=== PATIENT | female | born 1970 | race Caucasian/White ===

== ENCOUNTER 2018-04-15 09:02 | Day surgery (SDC) | payer MEDICAID ==
[2018-04-08 16:07] LABS: BASOPHILS # (AUTO) 0.1 X10'3 (0-0.2); BASOPHILS % (AUTO) 0.8 % (0-1); EOSINOPHILS # (AUTO) 0.4 X10'3 (0-0.9); EOSINOPHILS % (AUTO) 4.5 % (0-6); LYMPHOCYTES # (AUTO) 2.5 X10'3 (1.1-4.8); LYMPHOCYTES % (AUTO) 32.5 % (21-51); MEAN CORPUSCULAR HEMOGLOBIN 28.7 PG (27.0-31.0); MEAN CORPUSCULAR VOLUME 84.4 FL (78-98); MEAN PLATELET VOLUME 7.5 FL (7.4-10.4); MONOCYTES # (AUTO) 0.5 X10'3 (0-0.9); MONOCYTES % (AUTO) 5.8 % (2-12); NEUTROPHILS # (AUTO) 4.4 X10'3 (1.8-7.7); NEUTROPHILS % (AUTO) 56.4 % (42-75); PRE OP HEMATOCRIT 39.4 % (35.0-45.0); PRE OP HEMOGLOBIN 13.4 g/dL (12.0-16.0); PRE OP PLATELET COUNT 341 X10'3 (140-440); RED BLOOD COUNT 4.67 X10'6 (4.20-5.60); RED CELL DISTRIBUTION WIDTH 15.8 % (11.5-14.5)
[2018-04-08 16:08] LABS: CLARITY,URINE CLOUDY (Clear); COLOR,URINE YELLOW (Yellow); GLUCOSE, URINE NEGATIVE (Neg); KETONES,URINE NEGATIVE (Neg); LEUKOCYTE ESTERASE ,URINE TRACE (Neg); NITRITES, URINE NEGATIVE (Neg); OCCULT BLOOD,URINE NEGATIVE (Neg); PROTEIN,URINE NEGATIVE (Neg); UROBILINOGEN,URINE 0.2 E.U/dL (0.2-1.0)
[2018-04-08 16:19] LABS: SQUAMOUS EPITHELIAL CELL,UR MANY /LPF (FEW); UA COLLECTION TYPE CLN CATCH MIDSTREAM
[2018-04-08 16:20] LABS: BACTERIA,URINE 2+ /HPF (Neg); RBC,URINE 0-2 /HPF (0-2); WBC,URINE 0-4 /HPF (0-4)
[2018-04-08 16:25] LABS: ALBUMIN 3.2 G/DL (3.4-5.0); ALBUMIN/GLOBULIN RATIO 0.9 (1.1-1.5); ALKALINE PHOSPHATASE 123 IU/L (46-116); BLOOD UREA NITROGEN 9 MG/DL (7-18); BUN/CREATININE RATIO 10.6 (6.6-38.0); CHLORIDE 105 MMOL/L (99-107); CREATININE 0.85 MG/DL (0.40-0.90); PRE OP ALT 75 U/L (30-65); PRE OP ANION GAP 6 (8-16); PRE OP AST 63 U/L (10-37); PRE OP BILIRUB, TOTAL 0.3 MG/DL (0.0-1.0); PRE OP GLUCOSE 114 MG/DL (70-104); PRE OP POTASSIUM 3.8 MMOL/L (3.4-5.1); PRE OP SODIUM 140 MMOL/L (135-145); TOTAL CARBON DIOXIDE 29.4 MMOL/L (24-32); TOTAL PROTEIN 6.9 G/DL (6.4-8.2); eGFR 71 ML/MIN
[2018-04-08 16:44] LABS: INR 0.9 INR; PARTIAL THROMBOPLASTIN TIME 27 SECONDS (22-32); PROTHROMBIN TIME 9.8 SECONDS (9.0-12.0)
[~2018-04-15] VITALS: Ht 172.7 cm; Wt 129.4 kg
[~2018-04-15 09:02] MED LIST: ALBU8HFA PO; BENZ-16 PO; BUPR-94 PO; CHOL10008 PO; CYCL-1 PO; EFF25T PO; PANT-47 PO; POTA99TA21 PO; PREG150C PO; TIOT4MIS3 INH; TRAZ150T78 PO; VENL75CA61 PO; albuterol 2.5 MG/3 ML nebule NEB ONE; clindamycin-Cleocin 900mg/D5W 50 ML IV ONE; famotidine 20mg tablet PO ONE; ringers solution, lacted 1,000 ML IV SCH
[2018-04-15 09:15] VITALS: BP 135/84
[2018-04-15] MEDS ORDERED: bupivacaine (with preservative) 5 mg/ml inj. 50ml ONE ×2 (12:28→12:52)
[2018-04-15] MEDS ORDERED: midazolam 2 mg/2 ml injection ONE (12:58)
[2018-04-15] MEDS ORDERED: fentaNYL /PF 50mcg/ml 5ml ampule ONE (13:00)
[2018-04-15] MEDS ORDERED: sevoflurane 250ml liquid IH ONE (13:00)
[2018-04-15] MEDS ORDERED: gentamicin 40 MG/1 ML inj ONE (13:25)
[2018-04-15] MEDS ORDERED: clindamycin phosphate 150mg/ml inj. ONE (13:25)
[2018-04-15] MEDS ORDERED: ringers solution, lacted 1,000 ML IV SCH (14:46)
[2018-04-15 14:48] VITALS: BP 163/104
[2018-04-15] MEDS ORDERED: ondansetron/PF 4mg/2ml inj IV PRN (14:50)
[2018-04-15] MEDS ORDERED: fentaNYL/PF 50MCG/1 ML 2ML syringe IV PRN ×2 (14:50)
[2018-04-15] MEDS ORDERED: LIDOcaine 2% (20mg/ml) 5ml vial ONE (14:54)
[2018-04-15] MEDS ORDERED: ondansetron/PF 4mg/2ml inj ONE (14:54)
[2018-04-15] MEDS ORDERED: rocuronium 10mg/ml inj IV ONE (14:54)
[2018-04-15] MEDS ORDERED: neostigmine methylsulfate 1 MG/ML 10ml vial ONE (14:54)
[2018-04-15] MEDS ORDERED: glycopyrrolate 0.2mg/ml inj ONE (14:54)
[2018-04-15] MEDS ORDERED: propofol inj 20 ML IV ONE (14:54)
[2018-04-15 14:58] VITALS: BP 159/97
[2018-04-15 15:08] VITALS: BP 154/84
[2018-04-15 15:18] VITALS: BP 156/82
[2018-04-15 15:28] VITALS: BP 159/87
== END 2018-04-15 15:48 | disposition home or self-care (01) ==
LOC: PAS 09:02
PROVIDERS: ATTEND Surgery
DX: K43.2 Incisional hernia without obstruction or gangrene (principal); M19.90 Unspecified osteoarthritis, unspecified site; K21.9 Gastro-esophageal reflux disease without esophagitis; M79.7 Fibromyalgia; F32.9 Major depressive disorder, single episode, unspecified; G47.00 Insomnia, unspecified; E66.9 Obesity, unspecified; G89.29 Other chronic pain; I10 Essential (primary) hypertension; J44.9 Chronic obstructive pulmonary disease, unspecified; F17.210 Nicotine dependence, cigarettes, uncomplicated; Z90.49 Acquired absence of other specified parts of digestive tract; Z88.0 Allergy status to penicillin; Z88.3 Allergy status to other anti-infective agents; Z88.5 Allergy status to narcotic agent; Z79.01 Long term (current) use of anticoagulants; Z88.2 Allergy status to sulfonamides; Z98.51 Tubal ligation status; Z86.19 Personal history of other infectious and parasitic diseases; Z91.048 Other nonmedicinal substance allergy status; Z88.6 Allergy status to analgesic agent; Z91.018 Allergy to other foods; Z88.8 Allergy status to other drugs, medicaments and biological substances; Z79.891 Long term (current) use of opiate analgesic; Z79.899 Other long term (current) drug therapy; Z68.41 Body mass index [BMI] 40.0-44.9, adult
CPT/HCPCS: 36415; 49560; 49568; 80053; 81001; 85025; 85610; 85730; A6449; C1781; J2001; J2250; J2405; J2704; J2710; J3010; J3490; J7120; A7000; J1580

== ENCOUNTER 2018-05-01 12:02 | Inpatient (IN) | payer MEDICAID ==
[~2018-05-01] VITALS: Ht 174 cm; Wt 122.0 kg
[~2018-05-01 12:02] MED LIST changes: -EFF25T PO; -albuterol 2.5 MG/3 ML nebule NEB ONE; -clindamycin-Cleocin 900mg/D5W 50 ML IV ONE; -famotidine 20mg tablet PO ONE; -ringers solution, lacted 1,000 ML IV SCH
[2018-05-01] MEDS ORDERED: ketorolac tromethamine 15mg/ml inj. IV ONE (12:55)
[2018-05-01] MEDS ORDERED: vancomycin/NS 1 GM ADD-VANTAGE 250 ML IV ONE (12:55)
[2018-05-01] MEDS ORDERED: clindamycin-Cleocin 900mg/D5W 50 ML IV ONE (12:55)
[2018-05-01 13:28] LABS: BASOPHILS # (AUTO) 0.1 X10'3 (0-0.2); BASOPHILS % (AUTO) 0.5 % (0-1); EOSINOPHILS # (AUTO) 0.3 X10'3 (0-0.9); EOSINOPHILS % (AUTO) 1.5 % (0-6); HEMATOCRIT 41.1 % (35.0-45.0); LYMPHOCYTES % (AUTO) 11.2 % (21-51); MEAN CORPUSCULAR HEMOGLOBIN 28.5 PG (27.0-31.0); MEAN CORPUSCULAR VOLUME 83.8 FL (78-98); MEAN PLATELET VOLUME 7.1 FL (7.4-10.4); MONOCYTES # (AUTO) 0.8 X10'3 (0-0.9); MONOCYTES % (AUTO) 4.5 % (2-12); NEUTROPHILS # (AUTO) 14.6 X10'3 (1.8-7.7); NEUTROPHILS % (AUTO) 82.3 % (42-75); PLATELET COUNT 332 X10'3 (140-440); RED CELL DISTRIBUTION WIDTH 15.3 % (11.5-14.5); WHITE BLOOD COUNT 17.7 X10'3 (4.5-11.0)
[2018-05-01 13:44] LABS: ALANINE AMINOTRANSFERASE 58 U/L (12-78); ALBUMIN 3.5 G/DL (3.4-5.0); ALBUMIN/GLOBULIN RATIO 0.8 (1.1-1.5); ALKALINE PHOSPHATASE 125 IU/L (46-116); ANION GAP 11 (8-16); ASPARTATE AMINO TRANSFERASE 35 U/L (10-37); BLOOD UREA NITROGEN 12 MG/DL (7-18); BUN/CREATININE RATIO 12.1 (6.6-38.0); CALCIUM 9.5 MG/DL (8.5-10.1); CHLORIDE 100 MMOL/L (99-107); CREATININE 0.99 MG/DL (0.40-0.90); GLUCOSE 116 MG/DL (70-104); MAGNESIUM 1.8 MG/DL (1.5-2.4); POTASSIUM 3.5 MMOL/L (3.5-5.1); SODIUM 135 MMOL/L (135-145); TOTAL CARBON DIOXIDE 23.8 MMOL/L (24-32); TOTAL PROTEIN 7.8 G/DL (6.4-8.2); eGFR 60 ML/MIN
[2018-05-01] MEDS ORDERED: iohexol 300mg/ml 100ml inj. ONE (14:01)
[2018-05-01] MEDS ORDERED: acetaminophen 325mg tablet PO PRN (15:55)
[2018-05-01] MEDS ORDERED: magnesium hydroxide 30ml (MOM) UD suspension PO PRN (15:55)
[2018-05-01] MEDS ORDERED: ondansetron/PF 4mg/2ml inj IV PRN (15:55)
[2018-05-01] MEDS ORDERED: ipratropium/albuterol 3ml nebule NEB PRN (15:55)
[2018-05-01] MEDS ORDERED: potassium Cl 20 mEq SR tablet PO PRN (15:55)
[2018-05-01] MEDS: K and/or MAG REPLACEMENT MC SCH (15:55)
[2018-05-01] MEDS ORDERED: potassium Cl 40MEQ/NS 500ml 500 ML IV PRN ×2 (15:55)
[2018-05-01] MEDS ORDERED: magnesium/D5W IVPB 50 ML IV PRN (15:55)
[2018-05-01] MEDS ORDERED: mag hydrox/Alum hydrox/simeth 30ml oral suspension PO PRN (15:55)
[2018-05-01] MEDS ORDERED: magnesium 4gm in 100ml NS 100 ML IV PRN (15:55)
[2018-05-01 17:45] VITALS: BP 129/85
[2018-05-01] MEDS: pregabalin 75mg capsule PO SCH (19:25)
[2018-05-01] MEDS: clindamycin 600mg/D5W 50ml 50 ML IV SCH (19:25)
[2018-05-01 20:00] VITALS: BP 126/81
[2018-05-01] MEDS: traZODone 150mg tablet PO SCH (20:58)
[2018-05-01] MEDS: cyclobenzaprine 10mg tablet PO PRN (20:58)
[2018-05-01] MEDS: dronabinol 2.5mg capsule PO PRN (20:59)
[2018-05-02] VITALS: BP 111/56
[2018-05-02] MEDS: clindamycin 600mg/D5W 50ml 50 ML IV SCH ×4 (01:45→19:42)
[2018-05-02 06:15] LABS: BASOPHILS % (AUTO) 0.2 % (0-1); EOSINOPHILS # (AUTO) 1.1 X10'3 (0-0.9); EOSINOPHILS % (AUTO) 7.7 % (0-6); HEMATOCRIT 35.8 % (35.0-45.0); LYMPHOCYTES # (AUTO) 1.8 X10'3 (1.1-4.8); LYMPHOCYTES % (AUTO) 12.7 % (21-51); MEAN CORPUSCULAR HEMOGLOBIN 28.6 PG (27.0-31.0); MEAN CORPUSCULAR HGB CONC 33.6 % (33.0-36.5); MEAN CORPUSCULAR VOLUME 84.9 FL (78-98); MEAN PLATELET VOLUME 7.6 FL (7.4-10.4); MONOCYTES # (AUTO) 0.7 X10'3 (0-0.9); MONOCYTES % (AUTO) 5.3 % (2-12); NEUTROPHILS # (AUTO) 10.3 X10'3 (1.8-7.7); NEUTROPHILS % (AUTO) 74.1 % (42-75); PLATELET COUNT 289 X10'3 (140-440); RED BLOOD COUNT 4.21 X10'6 (4.20-5.60); RED CELL DISTRIBUTION WIDTH 15.4 % (11.5-14.5); WHITE BLOOD COUNT 13.9 X10'3 (4.5-11.0)
[2018-05-02 06:58] LABS: ALANINE AMINOTRANSFERASE 39 U/L (12-78); ALBUMIN 2.7 G/DL (3.4-5.0); ALBUMIN/GLOBULIN RATIO 0.7 (1.1-1.5); ALKALINE PHOSPHATASE 97 IU/L (46-116); ANION GAP 7 (8-16); ASPARTATE AMINO TRANSFERASE 17 U/L (10-37); BILIRUBIN,TOTAL 0.8 MG/DL (0.1-1.0); BLOOD UREA NITROGEN 8 MG/DL (7-18); BUN/CREATININE RATIO 9.8 (6.6-38.0); CALCIUM 9.3 MG/DL (8.5-10.1); CHLORIDE 105 MMOL/L (99-107); CHOL/HDL RATIO 2.2 (0.00-4.99); CHOLESTEROL 138 MG/DL (0-200); CREATININE 0.82 MG/DL (0.40-0.90); GLUCOSE 125 MG/DL (70-104); HDL CHOLESTEROL 62 MG/DL (35-60); LDL CHOLESTEROL 68 MG/DL (50-100); POTASSIUM 3.6 MMOL/L (3.5-5.1); SODIUM 139 MMOL/L (135-145); TOTAL CARBON DIOXIDE 26.8 MMOL/L (24-32); TOTAL PROTEIN 6.5 G/DL (6.4-8.2); TRIGLYCERIDES 81 MG/DL (20-135); eGFR 74 ML/MIN
[2018-05-02 07:00] VITALS: BP 104/62
[2018-05-02] MEDS: K and/or MAG REPLACEMENT MC SCH (08:00)
[2018-05-02] MEDS: pregabalin 75mg capsule PO SCH ×2 (08:08→19:41)
[2018-05-02] MEDS: vitamin D (cholecalciferol) 1,000 unit tablet PO SCH (08:08)
[2018-05-02] MEDS: buPROPion SR 150mg tablet PO SCH (08:08)
[2018-05-02] MEDS: pantoprazole 40mg Tablet.DR PO SCH (08:09)
[2018-05-02] MEDS: venlafaxine XR 75mg capsule (Q24H) PO SCH (08:09)
[2018-05-02] MEDS: enoxaparin 40mg/0.4ml syringe SQ SCH (08:09)
[2018-05-02 12:15] VITALS: BP 108/68
[2018-05-02] MEDS: ketorolac trometh. 30mg/ml inj. IV PRN (14:03)
[2018-05-02 19:00] VITALS: BP 117/63
[2018-05-02] MEDS: dronabinol 2.5mg capsule PO PRN ×3 (19:42→19:57)
[2018-05-02] MEDS ORDERED: VANCOMYCIN LEVEL IV ONE (21:30)
[2018-05-02] MEDS: traZODone 150mg tablet PO SCH (22:17)
[2018-05-02] MEDS: cyclobenzaprine 10mg tablet PO PRN (22:17)
[2018-05-03] VITALS: BP 99/55
[2018-05-03] MEDS: clindamycin 600mg/D5W 50ml 50 ML IV SCH (01:43)
[2018-05-03 02:51] LABS: BASOPHILS % (AUTO) 0 % (0-1); EOSINOPHILS # (AUTO) 1.3 X10'3 (0-0.9); EOSINOPHILS % (AUTO) 11.9 % (0-6); LYMPHOCYTES # (AUTO) 1.6 X10'3 (1.1-4.8); LYMPHOCYTES % (AUTO) 14.4 % (21-51); MEAN CORPUSCULAR HEMOGLOBIN 28.2 PG (27.0-31.0); MEAN CORPUSCULAR HGB CONC 33.3 % (33.0-36.5); MEAN CORPUSCULAR VOLUME 84.8 FL (78-98); MEAN PLATELET VOLUME 7.4 FL (7.4-10.4); MONOCYTES # (AUTO) 0.7 X10'3 (0-0.9); MONOCYTES % (AUTO) 6.2 % (2-12); NEUTROPHILS # (AUTO) 7.6 X10'3 (1.8-7.7); NEUTROPHILS % (AUTO) 67.5 % (42-75); PLATELET COUNT 266 X10'3 (140-440); RED BLOOD COUNT 3.89 X10'6 (4.20-5.60); RED CELL DISTRIBUTION WIDTH 15.3 % (11.5-14.5); WHITE BLOOD COUNT 11.2 X10'3 (4.5-11.0)
[2018-05-03 03:09] LABS: ALANINE AMINOTRANSFERASE 27 U/L (12-78); ALBUMIN 2.5 G/DL (3.4-5.0); ALBUMIN/GLOBULIN RATIO 0.6 (1.1-1.5); ALKALINE PHOSPHATASE 83 IU/L (46-116); ANION GAP 7 (8-16); ASPARTATE AMINO TRANSFERASE 18 U/L (10-37); BILIRUBIN,TOTAL 0.5 MG/DL (0.1-1.0); BLOOD UREA NITROGEN 8 MG/DL (7-18); BUN/CREATININE RATIO 7.7 (6.6-38.0); CALCIUM 9.2 MG/DL (8.5-10.1); CHLORIDE 105 MMOL/L (99-107); CREATININE 1.04 MG/DL (0.40-0.90); GLUCOSE 107 MG/DL (70-104); POTASSIUM 3.4 MMOL/L (3.5-5.1); SODIUM 139 MMOL/L (135-145); TOTAL CARBON DIOXIDE 26.9 MMOL/L (24-32); TOTAL PROTEIN 6.5 G/DL (6.4-8.2); eGFR 56 ML/MIN
[2018-05-03] MEDS: ketorolac trometh. 30mg/ml inj. IV PRN ×2 (06:01→23:18)
[2018-05-03 07:44] VITALS: BP 108/63
[2018-05-03] MEDS: K and/or MAG REPLACEMENT MC SCH (08:00)
[2018-05-03] MEDS: venlafaxine XR 75mg capsule (Q24H) PO SCH (08:06)
[2018-05-03] MEDS: pregabalin 75mg capsule PO SCH ×2 (08:08→20:03)
[2018-05-03] MEDS: buPROPion SR 150mg tablet PO SCH (08:10)
[2018-05-03] MEDS: vitamin D (cholecalciferol) 1,000 unit tablet PO SCH (08:10)
[2018-05-03] MEDS: pantoprazole 40mg Tablet.DR PO SCH (08:10)
[2018-05-03] MEDS: enoxaparin 40mg/0.4ml syringe SQ SCH (08:10)
[2018-05-03] MEDS: potassium Cl 20 mEq SR tablet PO PRN ×2 (08:11→14:43)
[2018-05-03 11:38] VITALS: BP 106/67
[2018-05-03] MEDS: levoFLOXACIN 750MG TABLET PO SCH (11:45)
[2018-05-03] MEDS: dronabinol 2.5mg capsule PO PRN ×2 (12:34→20:03)
[2018-05-03] MEDS ORDERED: VANCOMYCIN LEVEL IV ONE (13:30)
[2018-05-03 19:00] VITALS: BP 110/60
[2018-05-03] MEDS: traZODone 150mg tablet PO SCH (22:28)
[2018-05-03] MEDS: cyclobenzaprine 10mg tablet PO PRN (22:29)
[2018-05-03 23:30] VITALS: BP 109/68
[2018-05-04 05:07] LABS: BASOPHILS % (AUTO) 0.5 % (0-1); EOSINOPHILS # (AUTO) 1.2 X10'3 (0-0.9); EOSINOPHILS % (AUTO) 12.9 % (0-6); HEMATOCRIT 34.3 % (35.0-45.0); HEMOGLOBIN 11.5 g/dl (12.0-16.0); LYMPHOCYTES # (AUTO) 1.8 X10'3 (1.1-4.8); LYMPHOCYTES % (AUTO) 18.9 % (21-51); MEAN CORPUSCULAR HEMOGLOBIN 28.6 PG (27.0-31.0); MEAN CORPUSCULAR HGB CONC 33.6 % (33.0-36.5); MEAN PLATELET VOLUME 7.7 FL (7.4-10.4); MONOCYTES # (AUTO) 0.8 X10'3 (0-0.9); MONOCYTES % (AUTO) 8.4 % (2-12); NEUTROPHILS # (AUTO) 5.5 X10'3 (1.8-7.7); NEUTROPHILS % (AUTO) 59.3 % (42-75); PLATELET COUNT 293 X10'3 (140-440); RED BLOOD COUNT 4.03 X10'6 (4.20-5.60); RED CELL DISTRIBUTION WIDTH 15.3 % (11.5-14.5); WHITE BLOOD COUNT 9.3 X10'3 (4.5-11.0)
[2018-05-04 05:19] LABS: ALANINE AMINOTRANSFERASE 32 U/L (12-78); ALBUMIN 2.6 G/DL (3.4-5.0); ALBUMIN/GLOBULIN RATIO 0.6 (1.1-1.5); ALKALINE PHOSPHATASE 84 IU/L (46-116); ANION GAP 8 (8-16); ASPARTATE AMINO TRANSFERASE 23 U/L (10-37); BILIRUBIN,TOTAL 0.4 MG/DL (0.1-1.0); BLOOD UREA NITROGEN 9 MG/DL (7-18); BUN/CREATININE RATIO 9.9 (6.6-38.0); CALCIUM 9.7 MG/DL (8.5-10.1); CHLORIDE 105 MMOL/L (99-107); CREATININE 0.91 MG/DL (0.40-0.90); GLUCOSE 91 MG/DL (70-104); MAGNESIUM 2.3 MG/DL (1.5-2.4); POTASSIUM 3.8 MMOL/L (3.5-5.1); SODIUM 142 MMOL/L (135-145); TOTAL CARBON DIOXIDE 29.1 MMOL/L (24-32); TOTAL PROTEIN 6.9 G/DL (6.4-8.2); eGFR 66 ML/MIN
[2018-05-04] MEDS: K and/or MAG REPLACEMENT MC SCH (07:29)
[2018-05-04] MEDS: enoxaparin 40mg/0.4ml syringe SQ SCH (07:29)
[2018-05-04 07:31] VITALS: BP 122/75
[2018-05-04] MEDS: vitamin D (cholecalciferol) 1,000 unit tablet PO SCH (07:45)
[2018-05-04] MEDS: buPROPion SR 150mg tablet PO SCH (07:45)
[2018-05-04] MEDS: pantoprazole 40mg Tablet.DR PO SCH (07:46)
[2018-05-04] MEDS: pregabalin 75mg capsule PO SCH ×2 (07:46→20:00)
[2018-05-04] MEDS: venlafaxine XR 75mg capsule (Q24H) PO SCH (07:46)
[2018-05-04] MEDS: dronabinol 2.5mg capsule PO PRN ×2 (07:57→15:52)
[2018-05-04] MEDS: levoFLOXACIN 750MG TABLET PO SCH (11:34)
[2018-05-04 11:48] VITALS: BP 123/70
[2018-05-04] MEDS ORDERED: normal saline 1000ml 1,000 ML IV SCH (13:26)
[2018-05-04] MEDS ORDERED: midazolam 2 mg/2 ml injection IV PRN (13:30)
[2018-05-04] MEDS ORDERED: fentaNYL/PF 50MCG/1 ML 2ML syringe IV PRN (13:30)
[2018-05-04] MEDS ORDERED: LIDOcaine 1%/PF 5ML 10 MG/ML VIAL ONE (13:55)
[2018-05-04 14:01] VITALS: BP 121/66
[2018-05-04 14:20] VITALS: BP 128/58
[2018-05-04 20:00] VITALS: BP 119/67
[2018-05-04] MEDS: lactobacillus rhamnosus 10,000 MMU CELLS/CAPSULE PO SCH (20:00)
[2018-05-04] MEDS: ceFAZolin 1GM/D5W- ADD-VANTAGE 50 ML IV SCH (20:00)
[2018-05-04] MEDS: ketorolac trometh. 30mg/ml inj. IV PRN (20:32)
[2018-05-04] MEDS: cyclobenzaprine 10mg tablet PO PRN (23:20)
[2018-05-04] MEDS: traZODone 150mg tablet PO SCH (23:20)
[2018-05-05] VITALS: BP 110/63
[2018-05-05] MEDS: ceFAZolin 1GM/D5W- ADD-VANTAGE 50 ML IV SCH ×3 (01:14→15:55)
[2018-05-05 05:35] LABS: BASOPHILS % (AUTO) 0.4 % (0-1); EOSINOPHILS # (AUTO) 0.7 X10'3 (0-0.9); EOSINOPHILS % (AUTO) 12.2 % (0-6); HEMATOCRIT 32.9 % (35.0-45.0); LYMPHOCYTES # (AUTO) 1.4 X10'3 (1.1-4.8); LYMPHOCYTES % (AUTO) 23.5 % (21-51); MEAN CORPUSCULAR HEMOGLOBIN 28.6 PG (27.0-31.0); MEAN CORPUSCULAR HGB CONC 33.3 % (33.0-36.5); MEAN CORPUSCULAR VOLUME 85.9 FL (78-98); MEAN PLATELET VOLUME 7.8 FL (7.4-10.4); MONOCYTES # (AUTO) 0.6 X10'3 (0-0.9); MONOCYTES % (AUTO) 9.3 % (2-12); NEUTROPHILS # (AUTO) 3.3 X10'3 (1.8-7.7); NEUTROPHILS % (AUTO) 54.6 % (42-75); PLATELET COUNT 284 X10'3 (140-440); RED BLOOD COUNT 3.83 X10'6 (4.20-5.60); RED CELL DISTRIBUTION WIDTH 14.9 % (11.5-14.5); WHITE BLOOD COUNT 6.1 X10'3 (4.5-11.0)
[2018-05-05 06:21] LABS: ALANINE AMINOTRANSFERASE 39 U/L (12-78); ALBUMIN 2.4 G/DL (3.4-5.0); ALBUMIN/GLOBULIN RATIO 0.6 (1.1-1.5); ALKALINE PHOSPHATASE 94 IU/L (46-116); ANION GAP 7 (8-16); ASPARTATE AMINO TRANSFERASE 31 U/L (10-37); BILIRUBIN,TOTAL 0.2 MG/DL (0.1-1.0); BLOOD UREA NITROGEN 10 MG/DL (7-18); BUN/CREATININE RATIO 10.9 (6.6-38.0); CALCIUM 9.7 MG/DL (8.5-10.1); CHLORIDE 105 MMOL/L (99-107); CREATININE 0.92 MG/DL (0.40-0.90); GLUCOSE 106 MG/DL (70-104); MAGNESIUM 1.8 MG/DL (1.5-2.4); POTASSIUM 3.4 MMOL/L (3.5-5.1); SODIUM 139 MMOL/L (135-145); TOTAL PROTEIN 6.3 G/DL (6.4-8.2); eGFR 65 ML/MIN
[2018-05-05] MEDS: vitamin D (cholecalciferol) 1,000 unit tablet PO SCH (08:00)
[2018-05-05] MEDS: pregabalin 75mg capsule PO SCH ×2 (08:00→20:55)
[2018-05-05] MEDS: K and/or MAG REPLACEMENT MC SCH (08:00)
[2018-05-05] MEDS: venlafaxine XR 75mg capsule (Q24H) PO SCH (09:11)
[2018-05-05] MEDS: lactobacillus rhamnosus 10,000 MMU CELLS/CAPSULE PO SCH ×2 (09:11→20:53)
[2018-05-05] MEDS: pantoprazole 40mg Tablet.DR PO SCH (09:11)
[2018-05-05] MEDS: buPROPion SR 150mg tablet PO SCH ×2 (09:11→09:18)
[2018-05-05] MEDS: enoxaparin 40mg/0.4ml syringe SQ SCH (09:12)
[2018-05-05 11:00] VITALS: BP 112/41
[2018-05-05] MEDS ORDERED: magnesium 4gm in 100ml NS 100 ML IV PRN (11:35)
[2018-05-05] MEDS ORDERED: magnesium Cl slow-release 64mg tablet PO PRN (11:35)
[2018-05-05] MEDS ORDERED: potassium Cl 20 mEq SR tablet PO PRN ×2 (11:35)
[2018-05-05] MEDS ORDERED: potassium Cl 40MEQ/NS 500ml 500 ML IV PRN ×2 (11:35)
[2018-05-05] MEDS ORDERED: magnesium/D5W IVPB 100 ML IV PRN (11:35)
[2018-05-05] MEDS: dronabinol 2.5mg capsule PO PRN ×3 (12:17→20:55)
[2018-05-05] MEDS: ketorolac trometh. 30mg/ml inj. IV PRN (14:55)
[2018-05-05 18:00] VITALS: BP 124/64
[2018-05-05] MEDS ORDERED: iohexol 300mg/ml 100ml inj. ONE (19:18)
[2018-05-05] MEDS: traZODone 150mg tablet PO SCH (20:53)
[2018-05-05] MEDS: cyclobenzaprine 10mg tablet PO PRN (20:56)
[2018-05-06] VITALS: BP 115/63
[2018-05-06] MEDS: ceFAZolin 1GM/D5W- ADD-VANTAGE 50 ML IV SCH ×3 (01:40→16:05)
[2018-05-06 04:59] LABS: BASOPHILS % (AUTO) 0.5 % (0-1); EOSINOPHILS # (AUTO) 0.6 X10'3 (0-0.9); EOSINOPHILS % (AUTO) 11.8 % (0-6); HEMATOCRIT 33.9 % (35.0-45.0); HEMOGLOBIN 11.1 g/dl (12.0-16.0); LYMPHOCYTES # (AUTO) 1.7 X10'3 (1.1-4.8); LYMPHOCYTES % (AUTO) 31.8 % (21-51); MEAN CORPUSCULAR HGB CONC 32.7 % (33.0-36.5); MEAN CORPUSCULAR VOLUME 85.5 FL (78-98); MEAN PLATELET VOLUME 7.4 FL (7.4-10.4); MONOCYTES # (AUTO) 0.4 X10'3 (0-0.9); MONOCYTES % (AUTO) 8.3 % (2-12); NEUTROPHILS # (AUTO) 2.6 X10'3 (1.8-7.7); NEUTROPHILS % (AUTO) 47.6 % (42-75); PLATELET COUNT 313 X10'3 (140-440); RED BLOOD COUNT 3.96 X10'6 (4.20-5.60); WHITE BLOOD COUNT 5.4 X10'3 (4.5-11.0)
[2018-05-06 05:33] LABS: ALANINE AMINOTRANSFERASE 38 U/L (12-78); ALBUMIN 2.5 G/DL (3.4-5.0); ALBUMIN/GLOBULIN RATIO 0.6 (1.1-1.5); ALKALINE PHOSPHATASE 90 IU/L (46-116); ANION GAP 8 (8-16); ASPARTATE AMINO TRANSFERASE 34 U/L (10-37); BILIRUBIN,TOTAL 0.2 MG/DL (0.1-1.0); BLOOD UREA NITROGEN 9 MG/DL (7-18); BUN/CREATININE RATIO 9.4 (6.6-38.0); CALCIUM 9.7 MG/DL (8.5-10.1); CHLORIDE 107 MMOL/L (99-107); CREATININE 0.96 MG/DL (0.40-0.90); GLUCOSE 87 MG/DL (70-104); MAGNESIUM 1.8 MG/DL (1.5-2.4); POTASSIUM 3.8 MMOL/L (3.5-5.1); SODIUM 144 MMOL/L (135-145); TOTAL CARBON DIOXIDE 29.5 MMOL/L (24-32); TOTAL PROTEIN 6.4 G/DL (6.4-8.2); eGFR 62 ML/MIN
[2018-05-06 07:15] VITALS: BP 133/77
[2018-05-06] MEDS ORDERED: Protein Smoothie (high protein) 240ml (8oz) cup PO SCH (07:30)
[2018-05-06] MEDS: buPROPion SR 150mg tablet PO SCH (07:57)
[2018-05-06] MEDS: pantoprazole 40mg Tablet.DR PO SCH (07:57)
[2018-05-06] MEDS: pregabalin 75mg capsule PO SCH ×2 (07:57→19:46)
[2018-05-06] MEDS: vitamin D (cholecalciferol) 1,000 unit tablet PO SCH (07:57)
[2018-05-06] MEDS: venlafaxine XR 75mg capsule (Q24H) PO SCH (07:57)
[2018-05-06] MEDS: lactobacillus rhamnosus 10,000 MMU CELLS/CAPSULE PO SCH ×2 (07:57→19:46)
[2018-05-06] MEDS: enoxaparin 40mg/0.4ml syringe SQ SCH (07:58)
[2018-05-06] MEDS: K and/or MAG REPLACEMENT MC SCH (08:00)
[2018-05-06] MEDS: dronabinol 2.5mg capsule PO PRN ×3 (08:55→22:37)
[2018-05-06 11:00] VITALS: BP 127/75
[2018-05-06 18:00] VITALS: BP 124/82
[2018-05-06] MEDS: ibuprofen tablet 400 MG TABLET PO PRN (19:47)
[2018-05-06] MEDS: traZODone 150mg tablet PO SCH (22:36)
[2018-05-06] MEDS: cyclobenzaprine 10mg tablet PO PRN (22:37)
[2018-05-07] VITALS (17 sets, daily range): BP systolic 107–150; BP diastolic 59–118
[2018-05-07] MEDS: ceFAZolin 1GM/D5W- ADD-VANTAGE 50 ML IV SCH ×3 (01:23→16:07)
[2018-05-07] MEDS: enoxaparin 40mg/0.4ml syringe SQ SCH (07:32)
[2018-05-07] MEDS: Protein Smoothie (high protein) 240ml (8oz) cup PO SCH ×2 (07:43→12:30)
[2018-05-07] MEDS: pantoprazole 40mg Tablet.DR PO SCH (07:44)
[2018-05-07] MEDS: vitamin D (cholecalciferol) 1,000 unit tablet PO SCH (07:44)
[2018-05-07] MEDS: venlafaxine XR 75mg capsule (Q24H) PO SCH (07:44)
[2018-05-07] MEDS: buPROPion SR 150mg tablet PO SCH (07:44)
[2018-05-07] MEDS: pregabalin 75mg capsule PO SCH ×2 (07:44→20:32)
[2018-05-07] MEDS: lactobacillus rhamnosus 10,000 MMU CELLS/CAPSULE PO SCH ×2 (07:44→20:32)
[2018-05-07] MEDS: K and/or MAG REPLACEMENT MC SCH (07:54)
[2018-05-07 12:28] LABS: BASOPHILS % (AUTO) 0.6 % (0-1); EOSINOPHILS # (AUTO) 0.5 X10'3 (0-0.9); HEMATOCRIT 35.4 % (35.0-45.0); HEMOGLOBIN 11.9 g/dl (12.0-16.0); LYMPHOCYTES # (AUTO) 1.3 X10'3 (1.1-4.8); MEAN CORPUSCULAR HEMOGLOBIN 28.8 PG (27.0-31.0); MEAN CORPUSCULAR HGB CONC 33.7 % (33.0-36.5); MEAN CORPUSCULAR VOLUME 85.4 FL (78-98); MEAN PLATELET VOLUME 7.4 FL (7.4-10.4); MONOCYTES # (AUTO) 0.4 X10'3 (0-0.9); MONOCYTES % (AUTO) 6.7 % (2-12); NEUTROPHILS # (AUTO) 3.1 X10'3 (1.8-7.7); NEUTROPHILS % (AUTO) 57.7 % (42-75); PLATELET COUNT 324 X10'3 (140-440); RED BLOOD COUNT 4.14 X10'6 (4.20-5.60); RED CELL DISTRIBUTION WIDTH 14.7 % (11.5-14.5); WHITE BLOOD COUNT 5.4 X10'3 (4.5-11.0)
[2018-05-07 13:00] LABS: ALANINE AMINOTRANSFERASE 34 U/L (12-78); ALBUMIN 2.5 G/DL (3.4-5.0); ALBUMIN/GLOBULIN RATIO 0.6 (1.1-1.5); ALKALINE PHOSPHATASE 96 IU/L (46-116); ANION GAP 7 (8-16); ASPARTATE AMINO TRANSFERASE 26 U/L (10-37); BILIRUBIN,TOTAL 0.2 MG/DL (0.1-1.0); BLOOD UREA NITROGEN 10 MG/DL (7-18); BUN/CREATININE RATIO 11.6 (6.6-38.0); CALCIUM 10.1 MG/DL (8.5-10.1); CHLORIDE 104 MMOL/L (99-107); CREATININE 0.86 MG/DL (0.40-0.90); GLUCOSE 104 MG/DL (70-104); POTASSIUM 3.8 MMOL/L (3.5-5.1); SODIUM 142 MMOL/L (135-145); TOTAL PROTEIN 6.4 G/DL (6.4-8.2); eGFR 70 ML/MIN
[2018-05-07] MEDS: dronabinol 2.5mg capsule PO PRN ×2 (14:25→20:32)
[2018-05-07] MEDS ORDERED: acetaminophen 325mg tablet PO PRN (14:30)
[2018-05-07] MEDS ORDERED: clindamycin phosphate 150mg/ml inj. ONE (17:28)
[2018-05-07] MEDS ORDERED: gentamicin 40 MG/1 ML inj ONE (17:28)
[2018-05-07] MEDS ORDERED: ringers solution, lacted 1,000 ML IV ONE (17:53)
[2018-05-07] MEDS ORDERED: fentaNYL/PF 50MCG/1 ML 2ML syringe IV PRN ×2 (17:55)
[2018-05-07] MEDS ORDERED: ringers solution, lacted 1,000 ML IV SCH (17:55)
[2018-05-07] MEDS ORDERED: ondansetron/PF 4mg/2ml inj IV PRN (17:55)
[2018-05-07] MEDS ORDERED: scopolamine 1.5mg patch.TD72 TD ONE (17:55)
[2018-05-07] MEDS ORDERED: sevoflurane 250ml liquid IH ONE (17:58)
[2018-05-07] MEDS ORDERED: ondansetron/PF 4mg/2ml inj ONE ×2 (17:58→18:07)
[2018-05-07] MEDS ORDERED: neostigmine methylsulfate 1 MG/ML 10ml vial ONE (17:58)
[2018-05-07] MEDS ORDERED: glycopyrrolate 0.2mg/ml inj ONE (17:58)
[2018-05-07] MEDS ORDERED: acetaminophen 1,000mg/100ml IV 100 ML IV ONE (18:00)
[2018-05-07] MEDS ORDERED: propofol inj 20 ML IV ONE ×2 (18:07)
[2018-05-07] MEDS ORDERED: dexamethasone sod phosphate 4mg/ml inj. ONE (18:07)
[2018-05-07] MEDS ORDERED: rocuronium 10mg/ml inj IV ONE (18:07)
[2018-05-07] MEDS ORDERED: fentaNYL/PF 50MCG/1 ML 2ML syringe ONE (18:10)
[2018-05-07] MEDS ORDERED: midazolam 2 mg/2 ml injection ONE (18:11)
[2018-05-07] MEDS ORDERED: ketorolac trometh. 30mg/ml inj. ONE (18:27)
[2018-05-07] MEDS: traZODone 150mg tablet PO SCH (20:32)
[2018-05-07] MEDS: ciprofloxacin 250mg tablet PO SCH (21:31)
[2018-05-08] VITALS: BP 127/75
[2018-05-08] MEDS: ceFAZolin 1GM/D5W- ADD-VANTAGE 50 ML IV SCH ×3 (00:46→15:49)
[2018-05-08] MEDS: ibuprofen tablet 400 MG TABLET PO PRN (04:21)
[2018-05-08 04:24] VITALS: BP 133/80
[2018-05-08 07:00] VITALS: BP 128/83
[2018-05-08] MEDS: dronabinol 2.5mg capsule PO PRN ×2 (07:17→20:27)
[2018-05-08] MEDS: Protein Smoothie (high protein) 240ml (8oz) cup PO SCH ×2 (07:30→12:30)
[2018-05-08] MEDS: K and/or MAG REPLACEMENT MC SCH (08:00)
[2018-05-08] MEDS: pregabalin 75mg capsule PO SCH ×2 (09:00→20:25)
[2018-05-08] MEDS: buPROPion SR 150mg tablet PO SCH (09:00)
[2018-05-08] MEDS: venlafaxine XR 75mg capsule (Q24H) PO SCH (09:00)
[2018-05-08] MEDS: lactobacillus rhamnosus 10,000 MMU CELLS/CAPSULE PO SCH ×2 (09:01→20:25)
[2018-05-08] MEDS: pantoprazole 40mg Tablet.DR PO SCH (09:01)
[2018-05-08] MEDS: vitamin D (cholecalciferol) 1,000 unit tablet PO SCH (09:01)
[2018-05-08] MEDS: enoxaparin 40mg/0.4ml syringe SQ SCH (09:02)
[2018-05-08] MEDS: ciprofloxacin 250mg tablet PO SCH ×2 (10:27→21:55)
[2018-05-08 11:57] VITALS: BP 123/66
[2018-05-08 20:00] VITALS: BP 140/86
[2018-05-08] MEDS: traZODone 150mg tablet PO SCH (20:25)
[2018-05-09] VITALS: BP 109/67
[2018-05-09] MEDS: ceFAZolin 1GM/D5W- ADD-VANTAGE 50 ML IV SCH ×3 (00:23→16:24)
[2018-05-09] MEDS: ibuprofen tablet 400 MG TABLET PO PRN (05:07)
[2018-05-09] MEDS: pantoprazole 40mg Tablet.DR PO SCH (07:07)
[2018-05-09] MEDS: pregabalin 75mg capsule PO SCH ×2 (07:08→20:29)
[2018-05-09] MEDS: buPROPion SR 150mg tablet PO SCH (07:08)
[2018-05-09] MEDS: venlafaxine XR 75mg capsule (Q24H) PO SCH (07:08)
[2018-05-09] MEDS: vitamin D (cholecalciferol) 1,000 unit tablet PO SCH (07:08)
[2018-05-09] MEDS: enoxaparin 40mg/0.4ml syringe SQ SCH (07:08)
[2018-05-09] MEDS: lactobacillus rhamnosus 10,000 MMU CELLS/CAPSULE PO SCH ×2 (07:08→20:29)
[2018-05-09] MEDS: Protein Smoothie (high protein) 240ml (8oz) cup PO SCH ×2 (07:30→12:31)
[2018-05-09 08:00] VITALS: BP 131/67
[2018-05-09] MEDS: K and/or MAG REPLACEMENT MC SCH (08:00)
[2018-05-09] MEDS: ciprofloxacin 250mg tablet PO SCH ×2 (10:09→22:03)
[2018-05-09 11:27] VITALS: BP 140/95
[2018-05-09] MEDS: dronabinol 2.5mg capsule PO PRN ×2 (13:44→22:04)
[2018-05-09 20:00] VITALS: BP 116/80
[2018-05-09] MEDS: traZODone 150mg tablet PO SCH (22:03)
[2018-05-09 23:55] VITALS: BP 106/57
[2018-05-10] MEDS: ceFAZolin 1GM/D5W- ADD-VANTAGE 50 ML IV SCH ×4 (00:19→23:31)
[2018-05-10 07:03] VITALS: BP 112/70
[2018-05-10] MEDS: Protein Smoothie (high protein) 240ml (8oz) cup PO SCH ×2 (07:30→12:58)
[2018-05-10] MEDS: K and/or MAG REPLACEMENT MC SCH (08:00)
[2018-05-10] MEDS: pregabalin 75mg capsule PO SCH ×2 (08:45→20:50)
[2018-05-10] MEDS: buPROPion SR 150mg tablet PO SCH (08:46)
[2018-05-10] MEDS: pantoprazole 40mg Tablet.DR PO SCH (08:46)
[2018-05-10] MEDS: lactobacillus rhamnosus 10,000 MMU CELLS/CAPSULE PO SCH ×2 (08:46→20:50)
[2018-05-10] MEDS: venlafaxine XR 75mg capsule (Q24H) PO SCH (08:46)
[2018-05-10] MEDS: vitamin D (cholecalciferol) 1,000 unit tablet PO SCH (08:46)
[2018-05-10] MEDS: enoxaparin 40mg/0.4ml syringe SQ SCH (09:03)
[2018-05-10] MEDS: dronabinol 2.5mg capsule PO PRN ×3 (09:04→22:20)
[2018-05-10] MEDS: ciprofloxacin 250mg tablet PO SCH ×2 (11:01→20:50)
[2018-05-10] MEDS: ibuprofen tablet 400 MG TABLET PO PRN (11:01)
[2018-05-10 11:57] VITALS: BP 132/75
[2018-05-10 20:00] VITALS: BP 106/7
[2018-05-10] MEDS: traZODone 150mg tablet PO SCH (20:50)
[2018-05-10] MEDS: cyclobenzaprine 10mg tablet PO PRN (20:54)
[2018-05-11] VITALS: BP 113/68
[2018-05-11 04:38] LABS: BASOPHILS % (AUTO) 0.5 % (0-1); EOSINOPHILS # (AUTO) 0.9 X10'3 (0-0.9); EOSINOPHILS % (AUTO) 12.1 % (0-6); HEMATOCRIT 37.3 % (35.0-45.0); HEMOGLOBIN 12.4 g/dl (12.0-16.0); LYMPHOCYTES # (AUTO) 2.1 X10'3 (1.1-4.8); LYMPHOCYTES % (AUTO) 29.8 % (21-51); MEAN CORPUSCULAR HEMOGLOBIN 28.5 PG (27.0-31.0); MEAN CORPUSCULAR HGB CONC 33.3 % (33.0-36.5); MEAN CORPUSCULAR VOLUME 85.7 FL (78-98); MEAN PLATELET VOLUME 7.4 FL (7.4-10.4); MONOCYTES # (AUTO) 0.4 X10'3 (0-0.9); MONOCYTES % (AUTO) 5.2 % (2-12); NEUTROPHILS # (AUTO) 3.8 X10'3 (1.8-7.7); NEUTROPHILS % (AUTO) 52.4 % (42-75); PLATELET COUNT 389 X10'3 (140-440); RED BLOOD COUNT 4.35 X10'6 (4.20-5.60); RED CELL DISTRIBUTION WIDTH 14.6 % (11.5-14.5); WHITE BLOOD COUNT 7.2 X10'3 (4.5-11.0)
[2018-05-11 05:02] LABS: ALANINE AMINOTRANSFERASE 46 U/L (12-78); ALBUMIN 2.8 G/DL (3.4-5.0); ALBUMIN/GLOBULIN RATIO 0.7 (1.1-1.5); ALKALINE PHOSPHATASE 107 IU/L (46-116); ANION GAP 7 (8-16); ASPARTATE AMINO TRANSFERASE 36 U/L (10-37); BILIRUBIN,TOTAL 0.2 MG/DL (0.1-1.0); BLOOD UREA NITROGEN 9 MG/DL (7-18); BUN/CREATININE RATIO 8.6 (6.6-38.0); CALCIUM 9.8 MG/DL (8.5-10.1); CHLORIDE 102 MMOL/L (99-107); CREATININE 1.05 MG/DL (0.40-0.90); GLUCOSE 95 MG/DL (70-104); POTASSIUM 3.5 MMOL/L (3.5-5.1); SODIUM 140 MMOL/L (135-145); TOTAL CARBON DIOXIDE 30.8 MMOL/L (24-32); TOTAL PROTEIN 6.6 G/DL (6.4-8.2); eGFR 56 ML/MIN
[2018-05-11 08:00] VITALS: BP 111/66
[2018-05-11] MEDS: Protein Smoothie (high protein) 240ml (8oz) cup PO SCH ×2 (08:00→12:30)
[2018-05-11] MEDS: K and/or MAG REPLACEMENT MC SCH (08:00)
[2018-05-11] MEDS: ceFAZolin 1GM/D5W- ADD-VANTAGE 50 ML IV SCH ×3 (08:01→23:58)
[2018-05-11] MEDS: buPROPion SR 150mg tablet PO SCH (08:02)
[2018-05-11] MEDS: enoxaparin 40mg/0.4ml syringe SQ SCH (08:02)
[2018-05-11] MEDS: pantoprazole 40mg Tablet.DR PO SCH (08:03)
[2018-05-11] MEDS: venlafaxine XR 75mg capsule (Q24H) PO SCH (08:03)
[2018-05-11] MEDS: lactobacillus rhamnosus 10,000 MMU CELLS/CAPSULE PO SCH ×2 (08:03→20:51)
[2018-05-11] MEDS: vitamin D (cholecalciferol) 1,000 unit tablet PO SCH (08:03)
[2018-05-11] MEDS: pregabalin 75mg capsule PO SCH ×2 (08:03→20:51)
[2018-05-11] MEDS: dronabinol 2.5mg capsule PO PRN ×2 (08:44→18:28)
[2018-05-11] MEDS: ciprofloxacin 250mg tablet PO SCH ×2 (10:35→20:51)
[2018-05-11 11:25] VITALS: BP 108/78
[2018-05-11] MEDS: ibuprofen tablet 400 MG TABLET PO PRN ×2 (11:56→20:51)
[2018-05-11] MEDS ORDERED: CIPR250T4 PO (15:15)
[2018-05-11] MEDS ORDERED: CEPH-571 PO (15:15)
[2018-05-11] MEDS ORDERED: CEPH250T PO (15:22)
[2018-05-11] MEDS ORDERED: CIPR-260 PO (15:22)
[2018-05-11 20:09] VITALS: BP 130/85
[2018-05-11] MEDS: traZODone 150mg tablet PO SCH (20:51)
[2018-05-11] MEDS: cyclobenzaprine 10mg tablet PO PRN (20:55)
[2018-05-12 00:38] VITALS: BP 119/65
[2018-05-12] MEDS: K and/or MAG REPLACEMENT MC SCH (07:06)
[2018-05-12] MEDS: pantoprazole 40mg Tablet.DR PO SCH (07:12)
[2018-05-12] MEDS: ceFAZolin 1GM/D5W- ADD-VANTAGE 50 ML IV SCH (07:12)
[2018-05-12] MEDS: buPROPion SR 150mg tablet PO SCH (07:12)
[2018-05-12] MEDS: ibuprofen tablet 400 MG TABLET PO PRN (07:12)
[2018-05-12] MEDS: pregabalin 75mg capsule PO SCH (07:12)
[2018-05-12] MEDS: venlafaxine XR 75mg capsule (Q24H) PO SCH (07:12)
[2018-05-12] MEDS: vitamin D (cholecalciferol) 1,000 unit tablet PO SCH (07:12)
[2018-05-12] MEDS: enoxaparin 40mg/0.4ml syringe SQ SCH (07:13)
[2018-05-12] MEDS: lactobacillus rhamnosus 10,000 MMU CELLS/CAPSULE PO SCH (07:13)
[2018-05-12 07:21] VITALS: BP 107/67
[2018-05-12] MEDS: Protein Smoothie (high protein) 240ml (8oz) cup PO SCH ×2 (07:58→12:31)
[2018-05-12] MEDS: ciprofloxacin 250mg tablet PO SCH (10:14)
[2018-05-12 11:39] VITALS: BP 119/70
[2018-05-12] MEDS: dronabinol 2.5mg capsule PO PRN (13:41)
== END 2018-05-12 14:40 | disposition home or self-care (01) | DRG 711 ==
LOC: ER 12:03 → ED HOLD 15:51 → SUR 3N 17:36
PROVIDERS: ADMIT Family Medicine; ATTEND Family Medicine
PROC: BW211ZZ Computerized Tomography (CT Scan) of Abdomen and Pelvis using Low Osmolar Contrast (ICD-10-PCS; 2018-05-01)
PROC: 0W9F3ZX Drainage of Abdominal Wall, Percutaneous Approach, Diagnostic (ICD-10-PCS; principal; 2018-05-04)
PROC: BW211ZZ Computerized Tomography (CT Scan) of Abdomen and Pelvis using Low Osmolar Contrast (ICD-10-PCS; 2018-05-05)
PROC: 0WJF0ZZ Inspection of Abdominal Wall, Open Approach (ICD-10-PCS; 2018-05-07)
DX: T81.4XXA Infection following a procedure, initial encounter (principal); Z68.41 Body mass index [BMI] 40.0-44.9, adult; L02.211 Cutaneous abscess of abdominal wall; J44.9 Chronic obstructive pulmonary disease, unspecified; B95.61 Methicillin susceptible Staphylococcus aureus infection as the cause of diseases classified elsewhere; F17.210 Nicotine dependence, cigarettes, uncomplicated; G89.4 Chronic pain syndrome; K21.9 Gastro-esophageal reflux disease without esophagitis; L03.311 Cellulitis of abdominal wall; L76.33 Postprocedural seroma of skin and subcutaneous tissue following a dermatologic procedure; M51.36 Other intervertebral disc degeneration, lumbar region; M17.0 Bilateral primary osteoarthritis of knee; Y83.8 Other surgical procedures as the cause of abnormal reaction of the patient, or of later complication, without mention of misadventure at the time of the procedure; F12.90 Cannabis use, unspecified, uncomplicated; M79.7 Fibromyalgia; Z80.8 Family history of malignant neoplasm of other organs or systems; Z80.1 Family history of malignant neoplasm of trachea, bronchus and lung; Z80.51 Family history of malignant neoplasm of kidney; Z88.0 Allergy status to penicillin; Z88.2 Allergy status to sulfonamides; Z88.6 Allergy status to analgesic agent; Z88.8 Allergy status to other drugs, medicaments and biological substances; Z91.018 Allergy to other foods; Z82.49 Family history of ischemic heart disease and other diseases of the circulatory system; Z83.3 Family history of diabetes mellitus; Z98.51 Tubal ligation status; Z79.899 Other long term (current) drug therapy; Z90.49 Acquired absence of other specified parts of digestive tract; Y92.89 Other specified places as the place of occurrence of the external cause
CPT/HCPCS: 10030; 36415; 71045; 74177; 80053; 80061; 80202; 83605; 83735; 84145; 85025; 87040; 87070; 87075; 87077; 87186; 93005; 94667; 94760; 96365; 96366; 96368; 96375; 99285; A4649; A6213; A6253; A6258; A6449; A7000; C1729; C1758; C1769; J0131; J0690; J1100; J1580; J1650; J1885; J2001; J2250; J2405; J2704; J2710; J3010; J3370; J3490; J7030; J7120; Q0167; Q9967

== ENCOUNTER 2018-06-29 09:23 | Day surgery (SDC) | payer MEDICAID ==
[~2018-06-29 09:23] MED LIST changes: -ALBU8HFA PO; +CEPH250T PO; +CIPR-260 PO; -POTA99TA21 PO
[2018-06-29] MEDS ORDERED: LIDOcaine 2% 5ml jelly ONE (09:53)
[2018-06-29] MEDS ORDERED: DICL75TA5 PO (10:01)
[2018-06-29] MEDS ORDERED: ALBU18HF2 INH (10:02)
== END 2018-06-29 11:04 | disposition home or self-care (01) ==
LOC: WOUND CARE 09:23
PROVIDERS: ATTEND Surgery
DX: T81.89XA Other complications of procedures, not elsewhere classified, initial encounter (principal); L98.492 Non-pressure chronic ulcer of skin of other sites with fat layer exposed; M17.0 Bilateral primary osteoarthritis of knee; J44.9 Chronic obstructive pulmonary disease, unspecified; G89.29 Other chronic pain; K21.9 Gastro-esophageal reflux disease without esophagitis; F12.90 Cannabis use, unspecified, uncomplicated; F17.210 Nicotine dependence, cigarettes, uncomplicated; Z90.49 Acquired absence of other specified parts of digestive tract; Z68.41 Body mass index [BMI] 40.0-44.9, adult; Z79.899 Other long term (current) drug therapy; Y83.8 Other surgical procedures as the cause of abnormal reaction of the patient, or of later complication, without mention of misadventure at the time of the procedure
CPT/HCPCS: 97597

== ENCOUNTER 2018-07-07 09:28 | Day surgery (SDC) | payer MEDICAID ==
[~2018-07-07 09:28] MED LIST changes: +ALBU18HF2 INH; -CEPH250T PO; -CIPR-260 PO; +DICL75TA5 PO
[2018-07-07] MEDS ORDERED: LIDOcaine 2% 5ml jelly ONE (10:28)
== END 2018-07-07 11:16 | disposition home or self-care (01) ==
LOC: WOUND CARE 09:28
PROVIDERS: ATTEND Surgery
DX: T81.89XD Other complications of procedures, not elsewhere classified, subsequent encounter (principal); L98.492 Non-pressure chronic ulcer of skin of other sites with fat layer exposed; M17.0 Bilateral primary osteoarthritis of knee; J44.9 Chronic obstructive pulmonary disease, unspecified; G89.29 Other chronic pain; K21.9 Gastro-esophageal reflux disease without esophagitis; F12.90 Cannabis use, unspecified, uncomplicated; F17.210 Nicotine dependence, cigarettes, uncomplicated; Z90.49 Acquired absence of other specified parts of digestive tract; Z68.41 Body mass index [BMI] 40.0-44.9, adult; Z79.899 Other long term (current) drug therapy; Y83.8 Other surgical procedures as the cause of abnormal reaction of the patient, or of later complication, without mention of misadventure at the time of the procedure
CPT/HCPCS: 11042; A6021; A6206; A6212; A4456

== ENCOUNTER 2018-07-14 09:13 | Day surgery (SDC) | payer MEDICAID ==
[2018-07-14] MEDS ORDERED: LIDOcaine/PRILOcaine 5gm cream TP ONE (09:49)
== END 2018-07-14 10:22 | disposition home or self-care (01) ==
LOC: WOUND CARE 09:13
PROVIDERS: ATTEND Surgery
DX: T81.89XD Other complications of procedures, not elsewhere classified, subsequent encounter (principal); L98.492 Non-pressure chronic ulcer of skin of other sites with fat layer exposed; M17.0 Bilateral primary osteoarthritis of knee; J44.9 Chronic obstructive pulmonary disease, unspecified; G89.29 Other chronic pain; K21.9 Gastro-esophageal reflux disease without esophagitis; F12.90 Cannabis use, unspecified, uncomplicated; F17.210 Nicotine dependence, cigarettes, uncomplicated; Z90.49 Acquired absence of other specified parts of digestive tract; Z68.41 Body mass index [BMI] 40.0-44.9, adult; Z79.899 Other long term (current) drug therapy; Y83.8 Other surgical procedures as the cause of abnormal reaction of the patient, or of later complication, without mention of misadventure at the time of the procedure
CPT/HCPCS: 11042; A6021; A6206; A6212

== ENCOUNTER 2018-07-28 09:18 | Day surgery (SDC) | payer MEDICAID ==
[2018-07-28] MEDS ORDERED: LIDOcaine/PRILOcaine 5gm cream TP ONE (09:49)
== END 2018-07-28 10:30 | disposition home or self-care (01) ==
LOC: WOUND CARE 09:18
PROVIDERS: ATTEND Surgery
DX: T81.89XD Other complications of procedures, not elsewhere classified, subsequent encounter (principal); L98.492 Non-pressure chronic ulcer of skin of other sites with fat layer exposed; M17.0 Bilateral primary osteoarthritis of knee; J44.9 Chronic obstructive pulmonary disease, unspecified; G89.29 Other chronic pain; K21.9 Gastro-esophageal reflux disease without esophagitis; F12.90 Cannabis use, unspecified, uncomplicated; F17.210 Nicotine dependence, cigarettes, uncomplicated; Z90.49 Acquired absence of other specified parts of digestive tract; Z68.41 Body mass index [BMI] 40.0-44.9, adult; Z79.899 Other long term (current) drug therapy; Y83.8 Other surgical procedures as the cause of abnormal reaction of the patient, or of later complication, without mention of misadventure at the time of the procedure
CPT/HCPCS: 17250; A6021; A6212

== ENCOUNTER 2018-08-04 09:13 | Day surgery (SDC) | payer MEDICAID ==
[2018-08-04] MEDS ORDERED: LIDOcaine/PRILOcaine 5gm cream TP ONE (09:38)
== END 2018-08-04 10:08 | disposition home or self-care (01) ==
LOC: WOUND CARE 09:13
PROVIDERS: ATTEND Surgery
DX: T81.89XD Other complications of procedures, not elsewhere classified, subsequent encounter (principal); L98.492 Non-pressure chronic ulcer of skin of other sites with fat layer exposed; M17.0 Bilateral primary osteoarthritis of knee; J44.9 Chronic obstructive pulmonary disease, unspecified; G89.29 Other chronic pain; K21.9 Gastro-esophageal reflux disease without esophagitis; F12.90 Cannabis use, unspecified, uncomplicated; F17.210 Nicotine dependence, cigarettes, uncomplicated; Z90.49 Acquired absence of other specified parts of digestive tract; Z68.41 Body mass index [BMI] 40.0-44.9, adult; Z79.899 Other long term (current) drug therapy; Y83.8 Other surgical procedures as the cause of abnormal reaction of the patient, or of later complication, without mention of misadventure at the time of the procedure
CPT/HCPCS: 17250; A6021; A6212

== ENCOUNTER 2019-03-13 13:56 | Emergency (ER) | payer MEDICAID ==
[~2019-03-13] VITALS: Ht 172.7 cm; Wt 110.9 kg
[2019-03-13 14:12] VITALS: BP 132/89
[2019-03-13] MEDS ORDERED: TETanus/Pertussis (Acell)/Diphther VAC/PF (Tdap-Adult) 0.5ml syringe IM ONE (15:20)
--- NOTE | 2019-03-13 16:50 | NUR ---
WOUNDS CLEANSED WITH SALINE PER PARKING LOT MANAGER. PROVIDER AT THE BEDSIDE TO SUTURE LAC ON LEFT SCAPULA, LEFT ELBOW, AND SCALP. TOLERATED WELL. TETANUS BOOSTER ADMINISTERED ORDERED. GAUZE DRESSINGS TO WOUNDS AFTER CLOSED.
--- NOTE | 2019-03-13 16:51 | NUR ---
TC TO FRIEND, HOLLI, FOR TRANSPORTATION FOR PATIENT. FRIEND WILL BE COMING FOR DC TRASNPORTATION.
== END 2019-03-13 17:12 | disposition home or self-care (01) ==
LOC: ER 13:57
DX: S01.01XA Laceration without foreign body of scalp, initial encounter (principal); S51.012A Laceration without foreign body of left elbow, initial encounter; S41.012A Laceration without foreign body of left shoulder, initial encounter; S61.211A Laceration without foreign body of left index finger without damage to nail, initial encounter; J44.9 Chronic obstructive pulmonary disease, unspecified; K21.9 Gastro-esophageal reflux disease without esophagitis; M19.90 Unspecified osteoarthritis, unspecified site; F12.90 Cannabis use, unspecified, uncomplicated; F15.90 Other stimulant use, unspecified, uncomplicated; Z88.0 Allergy status to penicillin; Z88.2 Allergy status to sulfonamides; Z88.5 Allergy status to narcotic agent; Z88.6 Allergy status to analgesic agent; Z91.018 Allergy to other foods; Z88.8 Allergy status to other drugs, medicaments and biological substances; Z79.899 Other long term (current) drug therapy; Z56.0 Unemployment, unspecified; Z60.2 Problems related to living alone; W19.XXXA Unspecified fall, initial encounter; Y93.89 Activity, other specified; Y92.89 Other specified places as the place of occurrence of the external cause; Y99.8 Other external cause status
CPT/HCPCS: 12004; 90471; 90715; 99284

== ENCOUNTER 2020-07-15 23:19 | Emergency (ER) | payer MEDICAID ==
[~2020-07-15] VITALS: Ht 172.7 cm; Wt 97.0 kg
[2020-07-15 23:23] VITALS: BP 141/89
[2020-07-15] MEDS ORDERED: CARB15DR65 LEFT EAR (23:41)
== END 2020-07-15 23:48 | disposition home or self-care (01) ==
LOC: ER 23:19
DX: H92.01 Otalgia, right ear (principal); J44.9 Chronic obstructive pulmonary disease, unspecified; K21.9 Gastro-esophageal reflux disease without esophagitis; M19.90 Unspecified osteoarthritis, unspecified site; F12.90 Cannabis use, unspecified, uncomplicated; F15.90 Other stimulant use, unspecified, uncomplicated; Z98.890 Other specified postprocedural states; Z56.0 Unemployment, unspecified; Z60.2 Problems related to living alone; Z88.0 Allergy status to penicillin; Z88.2 Allergy status to sulfonamides; Z88.5 Allergy status to narcotic agent; Z88.8 Allergy status to other drugs, medicaments and biological substances; Z79.899 Other long term (current) drug therapy
CPT/HCPCS: 99281; 99282

== ENCOUNTER 2021-01-21 13:50 | Emergency (ER) | payer MEDICAID ==
[~2021-01-21] VITALS: Ht 172.7 cm; Wt 118.2 kg
[~2021-01-21 13:50] MED LIST changes: +CARB15DR65 LEFT EAR
[2021-01-21 14:45] VITALS: BP 129/82
[2021-01-21 15:34] LABS: BASOPHILS # (AUTO) 0.1 X10'3 (0-0.2); BASOPHILS % (AUTO) 0.8 % (0-1); EOSINOPHILS % (AUTO) 0.2 % (0-6); HEMATOCRIT 38.6 % (35.0-45.0); HEMOGLOBIN 12.9 g/dl (12.0-16.0); LYMPHOCYTES # (AUTO) 1.1 X10'3 (1.1-4.8); LYMPHOCYTES % (AUTO) 10.1 % (21-51); MEAN CORPUSCULAR HEMOGLOBIN 28.8 PG (27.0-31.0); MEAN CORPUSCULAR HGB CONC 33.4 g/dL (33.0-36.5); MEAN CORPUSCULAR VOLUME 86.3 FL (78-98); MONOCYTES # (AUTO) 0.7 X10'3 (0-0.9); NEUTROPHILS # (AUTO) 8.5 X10'3 (1.8-7.7); NEUTROPHILS % (AUTO) 81.9 % (42-75); PLATELET COUNT 286 X10'3 (140-440); RED BLOOD COUNT 4.47 X10'6 (4.20-5.60); WHITE BLOOD COUNT 10.4 X10'3 (4.5-11.0)
--- NOTE | 2021-01-21 15:41 | NUR ---
left leg ultrasound in progress
[2021-01-21 15:56] LABS: ALANINE AMINOTRANSFERASE 34 U/L (12-78); ALBUMIN 2.5 G/DL (3.4-5.0); ALBUMIN/GLOBULIN RATIO 0.6 (1.1-1.5); ALKALINE PHOSPHATASE 65 IU/L (46-116); ANION GAP 8 (8-16); ASPARTATE AMINO TRANSFERASE 36 U/L (10-37); BILIRUBIN,TOTAL 0.5 MG/DL (0.1-1.0); BLOOD UREA NITROGEN 7 MG/DL (7-18); BUN/CREATININE RATIO 10.6 (6.6-38.0); CALCIUM 9.2 MG/DL (8.5-10.1); CHLORIDE 98 MMOL/L (99-107); CREATININE 0.66 MG/DL (0.40-0.90); GLUCOSE 96 MG/DL (70-104); POTASSIUM 3.1 MMOL/L (3.5-5.1); SODIUM 134 MMOL/L (135-145); TOTAL CARBON DIOXIDE 28.2 MMOL/L (24-32); TOTAL PROTEIN 6.8 G/DL (6.4-8.2); eGFR > 90 ML/MIN
[2021-01-21] MEDS ORDERED: potassium Cl 20 mEq SR tablet PO STA (16:22)
[2021-01-21] MEDS ORDERED: ketorolac trometh. 30mg/ml inj. IV ONE (16:25)
== END 2021-01-21 16:44 | disposition home or self-care (01) ==
LOC: ER 13:50
DX: J44.9 Chronic obstructive pulmonary disease, unspecified (principal); K21.9 Gastro-esophageal reflux disease without esophagitis; M19.90 Unspecified osteoarthritis, unspecified site; F12.90 Cannabis use, unspecified, uncomplicated; F15.90 Other stimulant use, unspecified, uncomplicated; Z98.890 Other specified postprocedural states; Z60.2 Problems related to living alone; Z56.0 Unemployment, unspecified; Z88.0 Allergy status to penicillin; Z88.2 Allergy status to sulfonamides; Z88.5 Allergy status to narcotic agent; Z88.8 Allergy status to other drugs, medicaments and biological substances; Z79.899 Other long term (current) drug therapy
CPT/HCPCS: 36415; 80053; 85025; 93971; 96374; 99284; J1885

== ENCOUNTER 2025-01-11 11:01 | Inpatient (IN) | payer MEDICAID ==
[~2025-01-11] VITALS: Ht 172.7 cm; Wt 129.9 kg
[2025-01-11] VITALS (15 sets, daily range): BP systolic 87–139; BP diastolic 49–87; PULSE 59–81; RESP 13–16; TEMP 97.9–98; O2SAT 86–100
[~2025-01-11 11:01] MED LIST changes: -ALBU18HF2 INH; -BUPR-94 PO; -CARB15DR65 LEFT EAR; -CHOL10008 PO; -CYCL-1 PO; +DICL50TA8 PO; -DICL75TA5 PO; +IBUP-1986 PO; -PREG150C PO; -TIOT4MIS3 INH; -TRAZ150T78 PO; -VENL75CA61 PO
[2025-01-11] MEDS: ringers solution, lacted 1,000 ML IV SCH ×2 (16:59→18:35)
[2025-01-11 17:12] LABS: BASOPHILS % (AUTO) 0.6 % (0-1); EOSINOPHILS # (AUTO) 0.2 X10'3 (0-0.9); EOSINOPHILS % (AUTO) 3.2 % (0-6); HEMATOCRIT 38.2 % (35.0-45.0); HEMOGLOBIN 12.6 g/dl (12.0-16.0); LYMPHOCYTES # (AUTO) 1.3 X10'3 (1.1-4.8); LYMPHOCYTES % (AUTO) 19.6 % (21-51); MEAN CORPUSCULAR HEMOGLOBIN 28.2 PG (27.0-31.0); MEAN CORPUSCULAR HGB CONC 33.1 g/dL (33.0-36.5); MEAN CORPUSCULAR VOLUME 85.1 FL (78-98); MEAN PLATELET VOLUME 6.8 FL (7.4-10.4); MONOCYTES # (AUTO) 0.8 X10'3 (0-0.9); MONOCYTES % (AUTO) 11.1 % (2-12); NEUTROPHILS # (AUTO) 4.5 X10'3 (1.8-7.7); NEUTROPHILS % (AUTO) 65.5 % (42-75); PLATELET COUNT 417 X10'3 (140-440); RED BLOOD COUNT 4.49 X10'6 (4.20-5.60); RED CELL DISTRIBUTION WIDTH 12.9 % (11.5-14.5); WHITE BLOOD COUNT 6.8 X10'3 (4.5-11.0)
[2025-01-11] MEDS ORDERED: ASPI-1264 PO (17:16)
[2025-01-11 17:26] LABS: ALANINE AMINOTRANSFERASE 34 U/L (12-78); ALBUMIN 2.7 G/DL (3.4-5.0); ALBUMIN/GLOBULIN RATIO 0.6 (1.1-1.5); ALKALINE PHOSPHATASE 113 IU/L (46-116); ANION GAP 10 (8-16); ASPARTATE AMINO TRANSFERASE 39 U/L (10-37); BILIRUBIN,TOTAL 0.6 MG/DL (0.1-1.0); BLOOD UREA NITROGEN 16 MG/DL (7-18); BUN/CREATININE RATIO 15.7 (10.0-20.0); C-REACTIVE PROTEIN 15.06 MG/DL (0.0-0.5); CALCIUM 9.7 MG/DL (8.5-10.1); CHLORIDE 98 MMOL/L (99-107); CREATININE 1.02 MG/DL (0.40-0.90); GLUCOSE 103 MG/DL (70-104); POTASSIUM 3.1 MMOL/L (3.5-5.1); SODIUM 137 MMOL/L (135-145); TOTAL PROTEIN 7.5 G/DL (6.4-8.2); eCRCL 62 ML/MIN; eGFR 56 ML/MIN
[2025-01-11] MEDS: ketorolac trometh 30MG/ML vial 30 MG/ML VIAL IV PRN (17:40)
[2025-01-11] MEDS ORDERED: enalaprilat 1.25mg/ml 2ml vial IV PRN (18:35)
[2025-01-11] MEDS ORDERED: labetalol 20mg/4ml (5mg/ml) syringe IV PRN (18:35)
[2025-01-11] MEDS ORDERED: ondansetron/PF 4mg/2ml inj IV PRN (18:35)
[2025-01-11] MEDS ORDERED: fentaNYL/PF 50MCG/1 ML 2ML syringe IV PRN ×2 (18:35)
[2025-01-11] MEDS ORDERED: BUPIVAcaine 0.5% inj/PF 30 ML ONE (19:53)
[2025-01-11] MEDS ORDERED: tetracaine 1% (10mg/ml) pres. free inj. ONE (19:54)
[2025-01-11] MEDS ORDERED: BUPIVACAINE liposomal/PF 13.3 MG/ML 10mL vial IM ONE (19:54)
[2025-01-11] MEDS ORDERED: fentaNYL/PF 50MCG/1 ML 2ML syringe ONE (19:55)
[2025-01-11] MEDS ORDERED: MIDAZolam 1mg/ml 10ml vial ONE (19:55)
[2025-01-11] MEDS ORDERED: ROPIVAcaine 0.5% (5mg/ml) 30ml vial ONE (19:56)
[2025-01-11] MEDS ORDERED: ketorolac trometh 30MG/ML vial 30 MG/ML VIAL ONE (19:56)
[2025-01-11] MEDS ORDERED: BUPIVACAINE/MELOXICAM 14 ML VIAL IL ONE (19:56)
[2025-01-11] MEDS ORDERED: tobramycin sulfate 1.2gm vial ONE (20:00)
[2025-01-11] MEDS ORDERED: vancomycin 1,000mg inj ONE (20:01)
[2025-01-11] MEDS: DAPTOmycin 500mg inj IV ONE (20:35)
[2025-01-11] MEDS ORDERED: ceFAZolin 1000mg inj ONE ×3 (20:47)
[2025-01-11] MEDS: DAPTOmycin inj. 500 MG in normal saline 100ml IV soln 100 ML IV ONE (20:50)
[2025-01-11] MEDS ORDERED: diphenhydrAMINE 25mg capsule PO PRN (21:50)
[2025-01-11] MEDS ORDERED: HYDROmorphone 1 mg/ml syringe IV PRN (21:50)
[2025-01-11] MEDS ORDERED: non-formulary drug (Ibuprofen 1 TAB) PO PRN (21:50)
[2025-01-11] MEDS ORDERED: bisacodyl 10mg suppository rectal RC PRN (21:50)
[2025-01-11] MEDS ORDERED: naloxone 0.4 mg/ml inj IV PRN (21:50)
[2025-01-11] MEDS ORDERED: benzonatate 100mg capsule PO PRN (21:50)
[2025-01-11] MEDS ORDERED: HYDROmorphone inj. 0.5 MG/0.5 ML DISP.SYRIN IV PRN (21:50)
[2025-01-11] MEDS ORDERED: oxyCODONE IR 5mg (immed. release) tablet PO PRN ×2 (21:50)
[2025-01-11] MEDS ORDERED: acetaminophen 325mg tablet PO PRN (21:50)
[2025-01-11] MEDS ORDERED: non-formulary drug (Diclofenac Sodium 1 TAB) PO PRN (21:50)
[2025-01-11] MEDS ORDERED: magnesium hydroxide 30ml (MOM) UD suspension PO PRN (21:50)
[2025-01-12] VITALS (8 sets, daily range): BP systolic 83–159; BP diastolic 52–102; PULSE 72–91; RESP 16–22; TEMP 97.7–98.8; O2SAT 95–100
[2025-01-12] MEDS: potassium cl 20mEq in 1/2 NS 1,000 ML IV SCH (00:07)
[2025-01-12] MEDS: acetaminophen 325mg tablet PO SCH (01:55)
[2025-01-12] MEDS: ceFAZolin/D5W- 1GM premix 50 ML IV SCH (04:12)
[2025-01-12] MEDS ORDERED: TRAM50TA2 PO (05:08)
[2025-01-12] MEDS: traMADol 50MG tablet PO ONE (05:15)
[2025-01-12 06:07] LABS: BASOPHILS % (AUTO) 0.5 % (0-1); EOSINOPHILS # (AUTO) 0.4 X10'3 (0-0.9); EOSINOPHILS % (AUTO) 5.6 % (0-6); HEMATOCRIT 32.2 % (35.0-45.0); HEMOGLOBIN 10.9 g/dl (12.0-16.0); LYMPHOCYTES # (AUTO) 1.4 X10'3 (1.1-4.8); LYMPHOCYTES % (AUTO) 19.9 % (21-51); MEAN CORPUSCULAR HEMOGLOBIN 28.6 PG (27.0-31.0); MEAN CORPUSCULAR HGB CONC 33.8 g/dL (33.0-36.5); MEAN CORPUSCULAR VOLUME 84.7 FL (78-98); MEAN PLATELET VOLUME 6.9 FL (7.4-10.4); MONOCYTES # (AUTO) 0.8 X10'3 (0-0.9); MONOCYTES % (AUTO) 11.4 % (2-12); NEUTROPHILS # (AUTO) 4.4 X10'3 (1.8-7.7); NEUTROPHILS % (AUTO) 62.6 % (42-75); PLATELET COUNT 348 X10'3 (140-440)
[2025-01-12 06:43] LABS: ANION GAP 3 (8-16); CHLORIDE 102 MMOL/L (99-107); POTASSIUM 3.5 MMOL/L (3.5-5.1); SODIUM 137 MMOL/L (135-145); TOTAL CARBON DIOXIDE 32.2 MMOL/L (24-32)
[2025-01-12] MEDS: pantoprazole 40mg Tablet.DR PO SCH (07:27)
[2025-01-12] MEDS: aspirin 325mg tablet PO SCH (07:27)
[2025-01-12] MEDS: doxycycline inj 200 MG in normal saline 250ml IV soln 250 ML IV SCH (07:36)
[2025-01-12] MEDS: DAPTOmycin inj. 750 MG in normal saline 100ml IV soln 100 ML IV SCH (12:31)
[2025-01-12] MEDS: ondansetron/PF 4mg/2ml inj IV PRN (15:24)
[2025-01-12] MEDS: traMADol 50MG tablet PO PRN (18:21)
[2025-01-12] MEDS: celeCOXIB 100mg capsule PO SCH (20:02)
[2025-01-12] MEDS: sennosides 8.6mg tablet PO SCH (20:03)
[2025-01-13] VITALS (20 sets, daily range): BP systolic 107–143; BP diastolic 57–84; PULSE 64–88; RESP 15–20; TEMP 97.4–98.8; O2SAT 54–100
[2025-01-13 07:53] LABS: BASOPHILS % (AUTO) 0.4 % (0-1); EOSINOPHILS # (AUTO) 0.4 X10'3 (0-0.9); EOSINOPHILS % (AUTO) 7.6 % (0-6); HEMATOCRIT 32.6 % (35.0-45.0); HEMOGLOBIN 10.8 g/dl (12.0-16.0); LYMPHOCYTES # (AUTO) 1.1 X10'3 (1.1-4.8); MEAN CORPUSCULAR HEMOGLOBIN 28.3 PG (27.0-31.0); MEAN CORPUSCULAR VOLUME 85.7 FL (78-98); MEAN PLATELET VOLUME 7.1 FL (7.4-10.4); MONOCYTES # (AUTO) 0.7 X10'3 (0-0.9); MONOCYTES % (AUTO) 12.1 % (2-12); NEUTROPHILS # (AUTO) 3.3 X10'3 (1.8-7.7); NEUTROPHILS % (AUTO) 59.9 % (42-75); PLATELET COUNT 359 X10'3 (140-440); RED BLOOD COUNT 3.81 X10'6 (4.20-5.60); WHITE BLOOD COUNT 5.4 X10'3 (4.5-11.0)
[2025-01-13 13:59] LABS: BASOPHILS % (AUTO) 0.6 % (0-1); EOSINOPHILS # (AUTO) 0.4 X10'3 (0-0.9); EOSINOPHILS % (AUTO) 5.4 % (0-6); HEMATOCRIT 35.6 % (35.0-45.0); HEMOGLOBIN 11.7 g/dl (12.0-16.0); LYMPHOCYTES # (AUTO) 1.7 X10'3 (1.1-4.8); LYMPHOCYTES % (AUTO) 23.6 % (21-51); MEAN CORPUSCULAR HEMOGLOBIN 28.1 PG (27.0-31.0); MEAN PLATELET VOLUME 6.7 FL (7.4-10.4); MONOCYTES # (AUTO) 0.7 X10'3 (0-0.9); MONOCYTES % (AUTO) 10.4 % (2-12); NEUTROPHILS # (AUTO) 4.2 X10'3 (1.8-7.7); PLATELET COUNT 397 X10'3 (140-440); RED BLOOD COUNT 4.18 X10'6 (4.20-5.60); RED CELL DISTRIBUTION WIDTH 13.1 % (11.5-14.5); WHITE BLOOD COUNT 7.1 X10'3 (4.5-11.0)
[2025-01-13 14:13] LABS: ALANINE AMINOTRANSFERASE 32 U/L (12-78); ALBUMIN 2.3 G/DL (3.4-5.0); ALBUMIN/GLOBULIN RATIO 0.5 (1.1-1.5); ALKALINE PHOSPHATASE 94 IU/L (46-116); ANION GAP 3 (8-16); ASPARTATE AMINO TRANSFERASE 34 U/L (10-37); BILIRUBIN,TOTAL 0.4 MG/DL (0.1-1.0); BLOOD UREA NITROGEN 5 MG/DL (7-18); BUN/CREATININE RATIO 9.8 (10.0-20.0); CALCIUM 9.6 MG/DL (8.5-10.1); CHLORIDE 104 MMOL/L (99-107); CREATININE 0.51 MG/DL (0.40-0.90); GLUCOSE 97 MG/DL (70-104); POTASSIUM 4.3 MMOL/L (3.5-5.1); SODIUM 139 MMOL/L (135-145); TOTAL CARBON DIOXIDE 31.9 MMOL/L (24-32); TOTAL PROTEIN 6.8 G/DL (6.4-8.2); eCRCL 124 ML/MIN; eGFR > 90 ML/MIN
[2025-01-13] MEDS ORDERED: BUPIVAcaine 0.5% inj/PF 30 ML ONE (14:23)
[2025-01-13] MEDS ORDERED: tetracaine 1% (10mg/ml) pres. free inj. ONE (14:23)
[2025-01-13] MEDS ORDERED: BUPIVACAINE liposomal/PF 13.3 MG/ML 10mL vial IM ONE (14:24)
[2025-01-13] MEDS ORDERED: MIDAZolam 1mg/ml 10ml vial ONE (14:28)
[2025-01-13] MEDS ORDERED: fentaNYL/PF 50MCG/1 ML 2ML syringe ONE (14:29)
[2025-01-13] MEDS ORDERED: fentaNYL/PF 50MCG/1 ML 2ML syringe IV PRN ×2 (15:15)
[2025-01-13] MEDS: ringers solution, lacted 1,000 ML IV SCH (15:15)
[2025-01-13] MEDS ORDERED: hydrALAZINE 20mg/ml inj. IV PRN (15:15)
[2025-01-13] MEDS ORDERED: labetalol 20mg/4ml (5mg/ml) syringe IV PRN (15:15)
[2025-01-13] MEDS ORDERED: ondansetron/PF 4mg/2ml inj IV PRN (15:15)
[2025-01-13] MEDS ORDERED: tobramycin sulfate 1.2gm vial ONE (15:23)
[2025-01-13] MEDS: tobramycin sulfate 1.2gm vial TP ONE (15:25)
[2025-01-13] MEDS ORDERED: acetaminophen 325mg tablet PO PRN (18:20)
[2025-01-13] MEDS: diphenhydrAMINE 25mg capsule PO PRN (21:44)
[2025-01-13] MEDS ORDERED: albuterol 2.5 MG/3 ML nebule NEB PRN (22:10)
[2025-01-14] VITALS (7 sets, daily range): BP systolic 100–153; BP diastolic 53–83; PULSE 75–101; RESP 16–22; TEMP 97.2–98.3; O2SAT 94–99
[2025-01-14] MEDS: traMADol 50MG tablet PO PRN (00:37)
[2025-01-14 05:53] LABS: BASOPHILS % (AUTO) 0.5 % (0-1); EOSINOPHILS # (AUTO) 0.4 X10'3 (0-0.9); EOSINOPHILS % (AUTO) 8.3 % (0-6); HEMATOCRIT 29.6 % (35.0-45.0); LYMPHOCYTES # (AUTO) 1.4 X10'3 (1.1-4.8); LYMPHOCYTES % (AUTO) 25.8 % (21-51); MEAN CORPUSCULAR HEMOGLOBIN 28.5 PG (27.0-31.0); MEAN CORPUSCULAR VOLUME 83.9 FL (78-98); MEAN PLATELET VOLUME 6.9 FL (7.4-10.4); MONOCYTES # (AUTO) 0.5 X10'3 (0-0.9); MONOCYTES % (AUTO) 10.4 % (2-12); NEUTROPHILS # (AUTO) 2.9 X10'3 (1.8-7.7); PLATELET COUNT 359 X10'3 (140-440); RED BLOOD COUNT 3.52 X10'6 (4.20-5.60); RED CELL DISTRIBUTION WIDTH 13.1 % (11.5-14.5); WHITE BLOOD COUNT 5.3 X10'3 (4.5-11.0)
[2025-01-14 06:57] LABS: ALANINE AMINOTRANSFERASE 26 U/L (12-78); ALBUMIN/GLOBULIN RATIO 0.5 (1.1-1.5); ALKALINE PHOSPHATASE 77 IU/L (46-116); ANION GAP 5 (8-16); ASPARTATE AMINO TRANSFERASE 25 U/L (10-37); BILIRUBIN,TOTAL 0.4 MG/DL (0.1-1.0); BLOOD UREA NITROGEN 4 MG/DL (7-18); BUN/CREATININE RATIO 8.3 (10.0-20.0); CALCIUM 9.2 MG/DL (8.5-10.1); CHLORIDE 103 MMOL/L (99-107); CREATININE 0.48 MG/DL (0.40-0.90); GLUCOSE 89 MG/DL (70-104); SODIUM 138 MMOL/L (135-145); TOTAL CARBON DIOXIDE 30.5 MMOL/L (24-32); TOTAL PROTEIN 5.9 G/DL (6.4-8.2); eCRCL 132 ML/MIN; eGFR > 90 ML/MIN
[2025-01-14] MEDS: LORazepam 2 mg/ml vial ONE ×2 (10:46→10:49)
[2025-01-14] MEDS: LORazepam 2 mg/ml vial IV ONE (10:50)
[2025-01-14] MEDS: rifampin 300mg capsule PO SCH (11:05)
[2025-01-14] MEDS: ceFAZolin 2gm in dextrose, iso 50 ML IV SCH (13:11)
[2025-01-15 06:00] VITALS: BP 126/76; PULSE 72; RESP 16; TEMP 98.1; O2SAT 96
[2025-01-15 06:18] LABS: BASOPHILS % (AUTO) 0.9 % (0-1); EOSINOPHILS # (AUTO) 0.3 X10'3 (0-0.9); EOSINOPHILS % (AUTO) 5.8 % (0-6); HEMATOCRIT 31.4 % (35.0-45.0); HEMOGLOBIN 10.3 g/dl (12.0-16.0); LYMPHOCYTES # (AUTO) 1.4 X10'3 (1.1-4.8); LYMPHOCYTES % (AUTO) 25.5 % (21-51); MEAN CORPUSCULAR HEMOGLOBIN 28.3 PG (27.0-31.0); MEAN CORPUSCULAR HGB CONC 32.9 g/dL (33.0-36.5); MEAN CORPUSCULAR VOLUME 85.9 FL (78-98); MEAN PLATELET VOLUME 6.9 FL (7.4-10.4); MONOCYTES # (AUTO) 0.5 X10'3 (0-0.9); MONOCYTES % (AUTO) 8.6 % (2-12); NEUTROPHILS # (AUTO) 3.1 X10'3 (1.8-7.7); NEUTROPHILS % (AUTO) 59.2 % (42-75); PLATELET COUNT 402 X10'3 (140-440); RED BLOOD COUNT 3.65 X10'6 (4.20-5.60); RED CELL DISTRIBUTION WIDTH 12.9 % (11.5-14.5); WHITE BLOOD COUNT 5.3 X10'3 (4.5-11.0)
[2025-01-15 07:04] LABS: ALANINE AMINOTRANSFERASE 21 U/L (12-78); ALBUMIN/GLOBULIN RATIO 0.5 (1.1-1.5); ALKALINE PHOSPHATASE 81 IU/L (46-116); ANION GAP 9 (8-16); ASPARTATE AMINO TRANSFERASE 35 U/L (10-37); BILIRUBIN,TOTAL 0.6 MG/DL (0.1-1.0); BLOOD UREA NITROGEN 6 MG/DL (7-18); BUN/CREATININE RATIO 10.9 (10.0-20.0); CALCIUM 9.3 MG/DL (8.5-10.1); CHLORIDE 102 MMOL/L (99-107); CREATININE 0.55 MG/DL (0.40-0.90); GLUCOSE 83 MG/DL (70-104); SODIUM 140 MMOL/L (135-145); TOTAL CARBON DIOXIDE 29.3 MMOL/L (24-32); TOTAL PROTEIN 6.4 G/DL (6.4-8.2); eCRCL 115 ML/MIN; eGFR > 90 ML/MIN
[2025-01-15 07:10] LABS: POTASSIUM 4.1 MMOL/L (3.5-5.1)
[2025-01-15 08:40] VITALS: RESP 16; O2SAT 96
[2025-01-15 10:00] VITALS: BP 138/81; PULSE 76; RESP 14; TEMP 99.1; O2SAT 96
[2025-01-15 19:30] VITALS: BP 140/75; PULSE 85; RESP 18; TEMP 97.3; O2SAT 95
[2025-01-15] MEDS: enoxaparin 40mg/0.4ml syringe SUBCUT SCH (20:00)
[2025-01-15 22:00] VITALS: BP 149/83; PULSE 82; RESP 16; TEMP 97.6; O2SAT 93
[2025-01-16 06:00] VITALS: BP 124/70; PULSE 75; RESP 16; TEMP 98; O2SAT 94
[2025-01-16 07:53] LABS: BASOPHILS % (AUTO) 0.4 % (0-1); EOSINOPHILS # (AUTO) 0.2 X10'3 (0-0.9); HEMATOCRIT 32.7 % (35.0-45.0); LYMPHOCYTES # (AUTO) 1.1 X10'3 (1.1-4.8); LYMPHOCYTES % (AUTO) 20.9 % (21-51); MEAN CORPUSCULAR HGB CONC 33.6 g/dL (33.0-36.5); MEAN CORPUSCULAR VOLUME 83.6 FL (78-98); MEAN PLATELET VOLUME 6.5 FL (7.4-10.4); MONOCYTES # (AUTO) 0.4 X10'3 (0-0.9); MONOCYTES % (AUTO) 6.7 % (2-12); NEUTROPHILS # (AUTO) 3.7 X10'3 (1.8-7.7); PLATELET COUNT 484 X10'3 (140-440); RED BLOOD COUNT 3.91 X10'6 (4.20-5.60); RED CELL DISTRIBUTION WIDTH 12.9 % (11.5-14.5); WHITE BLOOD COUNT 5.5 X10'3 (4.5-11.0)
[2025-01-16 08:21] LABS: ALANINE AMINOTRANSFERASE 20 U/L (12-78); ALBUMIN 2.1 G/DL (3.4-5.0); ALBUMIN/GLOBULIN RATIO 0.5 (1.1-1.5); ALKALINE PHOSPHATASE 82 IU/L (46-116); ANION GAP 8 (8-16); ASPARTATE AMINO TRANSFERASE 32 U/L (10-37); BILIRUBIN,TOTAL 0.8 MG/DL (0.1-1.0); BLOOD UREA NITROGEN 5 MG/DL (7-18); BUN/CREATININE RATIO 7.7 (10.0-20.0); CALCIUM 9.4 MG/DL (8.5-10.1); CHLORIDE 101 MMOL/L (99-107); CREATININE 0.65 MG/DL (0.40-0.90); GLUCOSE 89 MG/DL (70-104); POTASSIUM 3.6 MMOL/L (3.5-5.1); SODIUM 139 MMOL/L (135-145); TOTAL CARBON DIOXIDE 30.4 MMOL/L (24-32); TOTAL PROTEIN 6.6 G/DL (6.4-8.2); eCRCL 97 ML/MIN; eGFR > 90 ML/MIN
[2025-01-16 08:35] VITALS: RESP 16; O2SAT 94
[2025-01-16 10:00] VITALS: BP 124/78; PULSE 67; RESP 22; TEMP 98; O2SAT 98
[2025-01-16 18:00] VITALS: BP 106/55; PULSE 85; RESP 16; TEMP 98.8; O2SAT 94
[2025-01-16 22:00] VITALS: BP 118/76; PULSE 75; RESP 16; TEMP 97.4; O2SAT 97
[2025-01-17] VITALS (8 sets, daily range): BP systolic 141–149; BP diastolic 79–94; PULSE 68–84; RESP 14–18; TEMP 96.2–98.2; O2SAT 97–99
[2025-01-17 05:48] LABS: BASOPHILS % (AUTO) 0.7 % (0-1); EOSINOPHILS # (AUTO) 0.3 X10'3 (0-0.9); EOSINOPHILS % (AUTO) 5.2 % (0-6); HEMATOCRIT 29.8 % (35.0-45.0); LYMPHOCYTES # (AUTO) 1.1 X10'3 (1.1-4.8); LYMPHOCYTES % (AUTO) 22.3 % (21-51); MEAN CORPUSCULAR HEMOGLOBIN 28.3 PG (27.0-31.0); MEAN CORPUSCULAR HGB CONC 33.6 g/dL (33.0-36.5); MEAN CORPUSCULAR VOLUME 84.2 FL (78-98); MEAN PLATELET VOLUME 6.5 FL (7.4-10.4); MONOCYTES # (AUTO) 0.4 X10'3 (0-0.9); MONOCYTES % (AUTO) 8.9 % (2-12); NEUTROPHILS # (AUTO) 3.1 X10'3 (1.8-7.7); NEUTROPHILS % (AUTO) 62.9 % (42-75); PLATELET COUNT 381 X10'3 (140-440); RED BLOOD COUNT 3.54 X10'6 (4.20-5.60); RED CELL DISTRIBUTION WIDTH 13.1 % (11.5-14.5)
[2025-01-17 06:21] LABS: ALANINE AMINOTRANSFERASE 36 U/L (12-78); ALBUMIN 1.9 G/DL (3.4-5.0); ALBUMIN/GLOBULIN RATIO 0.5 (1.1-1.5); ALKALINE PHOSPHATASE 74 IU/L (46-116); ANION GAP 2 (8-16); ASPARTATE AMINO TRANSFERASE 41 U/L (10-37); BILIRUBIN,TOTAL 0.3 MG/DL (0.1-1.0); CALCIUM 8.8 MG/DL (8.5-10.1); CHLORIDE 103 MMOL/L (99-107); CREATININE 0.67 MG/DL (0.40-0.90); GLUCOSE 152 MG/DL (70-104); POTASSIUM 3.5 MMOL/L (3.5-5.1); SODIUM 138 MMOL/L (135-145); TOTAL CARBON DIOXIDE 33.5 MMOL/L (24-32); TOTAL PROTEIN 6.1 G/DL (6.4-8.2); eCRCL 95 ML/MIN; eGFR > 90 ML/MIN
[2025-01-17 06:35] LABS: BLOOD UREA NITROGEN 5 MG/DL (7-18); BUN/CREATININE RATIO 7.5 (10.0-20.0)
[2025-01-17] MEDS: lactose-reduced food (Ensure Enlive) - 237ml bottle PO SCH (18:00)
[2025-01-18 06:00] VITALS: BP 160/83; PULSE 71; RESP 16; TEMP 96.1; O2SAT 96
[2025-01-18 06:09] LABS: BASOPHILS % (AUTO) 0.6 % (0-1); EOSINOPHILS # (AUTO) 0.2 X10'3 (0-0.9); EOSINOPHILS % (AUTO) 3.9 % (0-6); HEMATOCRIT 31.3 % (35.0-45.0); HEMOGLOBIN 10.5 g/dl (12.0-16.0); LYMPHOCYTES # (AUTO) 1.2 X10'3 (1.1-4.8); LYMPHOCYTES % (AUTO) 24.4 % (21-51); MEAN CORPUSCULAR HGB CONC 33.6 g/dL (33.0-36.5); MEAN CORPUSCULAR VOLUME 83.4 FL (78-98); MEAN PLATELET VOLUME 6.4 FL (7.4-10.4); MONOCYTES # (AUTO) 0.4 X10'3 (0-0.9); MONOCYTES % (AUTO) 8.3 % (2-12); NEUTROPHILS # (AUTO) 3.1 X10'3 (1.8-7.7); NEUTROPHILS % (AUTO) 62.8 % (42-75); PLATELET COUNT 452 X10'3 (140-440); RED BLOOD COUNT 3.75 X10'6 (4.20-5.60); RED CELL DISTRIBUTION WIDTH 13.1 % (11.5-14.5); WHITE BLOOD COUNT 4.9 X10'3 (4.5-11.0)
[2025-01-18 06:45] LABS: ALANINE AMINOTRANSFERASE 17 U/L (12-78); ALBUMIN 2.1 G/DL (3.4-5.0); ALBUMIN/GLOBULIN RATIO 0.5 (1.1-1.5); ALKALINE PHOSPHATASE 80 IU/L (46-116); ANION GAP 4 (8-16); ASPARTATE AMINO TRANSFERASE 20 U/L (10-37); BILIRUBIN,TOTAL 0.4 MG/DL (0.1-1.0); BLOOD UREA NITROGEN 5 MG/DL (7-18); BUN/CREATININE RATIO 7.9 (10.0-20.0); CALCIUM 9.2 MG/DL (8.5-10.1); CHLORIDE 105 MMOL/L (99-107); CREATININE 0.63 MG/DL (0.40-0.90); GLUCOSE 98 MG/DL (70-104); POTASSIUM 3.8 MMOL/L (3.5-5.1); PRO BRAIN NATRIURETIC PEPTIDE 372 PG/ML (0-125); SODIUM 142 MMOL/L (135-145); TOTAL CARBON DIOXIDE 33.3 MMOL/L (24-32); TOTAL PROTEIN 6.4 G/DL (6.4-8.2); eCRCL 101 ML/MIN; eGFR > 90 ML/MIN
[2025-01-18 07:38] LABS: CREATINE KINASE 24 U/L (26-192)
[2025-01-18 11:00] VITALS: BP 144/85; PULSE 71; TEMP 98.6; O2SAT 98
[2025-01-18 12:10] VITALS: RESP 20
[2025-01-18] MEDS: metroNIDAZOLE 500mg tablet PO SCH (13:12)
[2025-01-18] MEDS ORDERED: METR-159 PO (16:26)
[2025-01-18] MEDS ORDERED: RIFA300C65 PO (16:26)
[2025-01-18] MEDS ORDERED: CEFA1FRO IV (16:26)
== END 2025-01-18 14:15 | DRG 325 ==
LOC: ORTHO 4S 16:14 → UNDOADMIN 16:14 → ORTHO 4S 21:50
PROVIDERS: ADMIT Orthopaedic Surgery; ATTEND Orthopaedic Surgery
PROC: 0SPC08Z Removal of Spacer from Right Knee Joint, Open Approach (ICD-10-PCS; principal; 2025-01-11 20:00)
PROC: 0SRC0EZ Replacement of Right Knee Joint with Articulating Spacer, Open Approach (ICD-10-PCS; 2025-01-13)
PROC: 3E0102A Introduction of Anti-Infective Envelope into Subcutaneous Tissue, Open Approach (ICD-10-PCS; 2025-01-13)
DX: T84.53XA Infection and inflammatory reaction due to internal right knee prosthesis, initial encounter (principal); T81.31XA Disruption of external operation (surgical) wound, not elsewhere classified, initial encounter; R56.9 Unspecified convulsions; E66.9 Obesity, unspecified; M17.12 Unilateral primary osteoarthritis, left knee; Z96.651 Presence of right artificial knee joint; J44.9 Chronic obstructive pulmonary disease, unspecified; X58.XXXA Exposure to other specified factors, initial encounter; Y83.8 Other surgical procedures as the cause of abnormal reaction of the patient, or of later complication, without mention of misadventure at the time of the procedure; Y92.89 Other specified places as the place of occurrence of the external cause; Z88.1 Allergy status to other antibiotic agents; F32.A Depression, unspecified; K21.9 Gastro-esophageal reflux disease without esophagitis; Z90.49 Acquired absence of other specified parts of digestive tract; Z88.0 Allergy status to penicillin; Z87.891 Personal history of nicotine dependence; Z68.41 Body mass index [BMI] 40.0-44.9, adult
CPT/HCPCS: 36415; 71045; 76942; 80051; 80053; 82550; 82948; 83880; 85025; 85651; 86140; 87015; 87070; 87075; 87077; 87081; 87186; 93005; 97116; 97161; 97530; A4215; A4615; A4618; A6209; A6253; A6449; A7000; C1713; C1751; C1758; C1776; C9088; G0378; J0666; J0690; J0878; J1650; J1885; J2060; J2250; J2405; J2795; J3010; J3260; J3370; J3480; J3490; J7030; J7050; J7120; Q0163